=== PATIENT | male | born 1935 | race Caucasian/White ===

== ENCOUNTER 2017-04-23 18:56 | Emergency (ER) | payer OTHER, MEDICARE ==
[2017-04-23 19:00] VITALS: RESP 16; TEMP 98.6
--- NOTE | 2017-04-23 19:25 | EDPHY ---
HPI/HX/ROS/PE/MDM Narrative: CHIEF COMPLAINT: Neck pain HPI: This patient is an 82 year old male who presents to the Emergency Department complaining of worsening bilateral neck and shoulder pain over the past 2-3 days. 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 He describes his pain as achy and localized to the lateral muscle groups of his neck and shoulders. His pain was not alleviated with use of Valium today at 1100 or use of ice or heat. He denies midline cervical pain. No paresthesias or weakness. Medical history includes prostate cancer. REVIEW OF SYSTEMS: Aside from elements discussed in the HPI, a comprehensive 10-point review of systems was reviewed and is negative apart from chronic nocturnal leg cramps. PMH: Prostate cancer. SOCIAL HISTORY: Family at bedside. PHYSICAL EXAM: General:Patient is alert, in no acute distress. ENT:Eyes are normal to inspection. ENT inspection normal. Neck: Limited range of motion secondary to pain. No midline tenderness. Tenderness bilaterally to neck muscle groups. Respiratory:No respiratory distress. Breath sounds normal bilaterally. Cardiovascular: Regular rate and rhythm. Strong peripheral pulses. Normal cap refill. Abdomen:The abdomen is nontender to palpation. There are no peritoneal signs. There are normal bowel sounds. Back: Normal to inspection. No tenderness to palpation. Skin: Normal color. No rash. Warm and dry. Extremities: Normal appearance. Full range of motion. Neuro: Oriented x3. Normal motor function. Normal sensory function. ED Course: 82-year-old male presents with complaint of bilateral neck muscle pain with limited range of motion. He does not have any associated complaints; denies paresthesias, weakness, chest pain. There is no midline tenderness on exam. No neurological deficits. Will proceed with labs to check kidney function and electrolytes and plan for x-ray of the cervical spine. 10mg PO Flexeril administered. X-ray results interpreted by Dr. Pérez, radiology, are suggestive of degeneration and muscle spasm but no additional acute findings. Labs obtained. Creatinine and BUN levels are suggestive of renal insufficiency but are at baseline. 2028: On reevaluation, the patient reports that he is feeling better following administration of Flexeril but his ROM remains severely limited. I discussed with him my recommendation that we proceed with MRI of the cervical spine at this time. He is agreeable to this. 2243: MRI results reported to me by Dr. Pérez and indicate spinal stenosis. I discussed this finding with the patient as well as my recommendation that he follow-up with neurosurgery for further evaluation. He will be given Flexeril to use PRN for muscle spasms and a Arkoma pre-pack to use PRN for pain. He understands customary return precautions and will be discharged home in good condition. MDM: This patient presents with severe pain and severely limited ROM of his neck without evidence of trauma. Given age and comorbidities, particularly prostate CA, we performed an extensive workup to exclude emergent pathology. I see no signs of cervical fracture, acute spinal cord emergency, central cord syndrome, meningitis or trauma. - Data Points Imaging Results: Imaging Impressions Cervical Spine X-Ray 04/23/17 19:33 Impression: Progressive degenerative change since 2012. Alignment suggests possible muscle spasm. Imaging: Discussed imaging studies w/ director call Radiologist (Spinal stenosis) Laboratory Results: Laboratory Results 04/23/17 19:45 04/23/17 19:45 04/23/17 04/23/17 19:45 19:45 WBC 12.53 10^3/uL H 10^3/uL (3.80-9.50) RBC 4.02 10^6/uL L 10^6/uL (4.40-6.38) Hgb 13.3 g/dL L g/dL (13.7-17.5) Hct 40.4 % % (40.0-51.0) MCV 100.5 fL H fL (81.5-99.8) MCH 33.1 pg pg (27.9-34.1) MCHC 32.9 g/dL g/dL (32.4-36.7) RDW 13.7 % % (11.5-15.2) Plt Count 278 10^3/uL 10^3/uL (150-400) MPV 10.7 fL fL (8.7-11.7) Neut % (Auto) 71.5 % % (39.3-74.2) Lymph % (Auto) 12.5 % L % (15.0-45.0) [place] % (Auto) 13.5 % H % (4.5-13.0) Eos % (Auto) 1.5 % % (0.6-7.6) Baso % (Auto) 0.6 % % (0.3-1.7) Nucleat RBC Rel Count 0.0 % % (0.0-0.2) Absolute Neuts (auto) 8.97 10^3/uL H 10^3/uL (1.70-6.50) Absolute Lymphs (auto) 1.56 10^3/uL 10^3/uL (1.00-3.00) Absolute Monos (auto) 1.69 10^3/uL H 10^3/uL (0.30-0.80) Absolute Eos (auto) 0.19 10^3/uL 10^3/uL (0.03-0.40) Absolute Basos (auto) 0.07 10^3/uL 10^3/uL (0.02-0.10) Absolute Nucleated RBC 0.00 10^3/uL 10^3/uL (0-0.01) Immature Gran % 0.4 % % (0.0-1.1) Immature Gran # 0.05 10^3/uL 10^3/uL (0.00-0.10) Sodium 141 mEq/L mEq/L (134-144) Potassium 5.3 mEq/L H mEq/L (3.5-5.2) Chloride 108 mEq/L mEq/L (97-110) Carbon Dioxide 19 mEq/l L mEq/l (22-31) Anion Gap 14 mEq/L mEq/L (8-16) BUN 41 mg/dL H mg/dL (7-23) Creatinine 2.3 mg/dL H mg/dL (0.7-1.3) Estimated GFR 27 Glucose 108 mg/dL H mg/dL (70-100) Calcium 9.5 mg/dL mg/dL (8.5-10.4) Medications Given: Discontinued Medications Hydrocodone Bitart/Acetaminophen ([place] 5/325) 1 tab PO EDNOW ONE Stop: 04/23/17 22:37 Last Admin: 04/23/17 22:39 Dose: 1 tab Cyclobenzaprine HCl (Flexeril) 10 mg PO EDNOW ONE Stop: 04/23/17 19:34 Last Admin: 04/23/17 19:44 Dose: 10 mg General Time Seen by Provider: 04/23/17 19:09 Initial Vital Signs: Initial Vital Signs Temperature (C) 37 C 04/23/17 18:58 Heart Rate 82 04/23/17 18:58 Respiratory Rate 16 04/23/17 18:58 Blood Pressure 174/72 H 04/23/17 18:58 O2 Sat (%) 91 L 04/23/17 18:58 O2 Delivery Mode Room Air Allergies/Adverse Reactions: No Known Allergies Allergy (Unverified 08/29/13 05:31) Home Medications: Medication Instructions Recorded ALLOPURINOL [Allopurinol 100 mg] 100 mg PO DAILY 05/30/11 Rabeprazole Sodium [Aciphex] 20 mg PO DAILY 05/30/11 Htn Meds 11/29/11 Metoprolol Tartrate 08/29/13 Omeprazole 08/29/13 Prednisone 08/29/13 Sulfazine 08/29/13 predniSONE 20 mg PO .DAILY #1 tab 08/29/13 Cyclobenzaprine [Flexeril 10 MG 10 mg PO TID PRN #15 tab 04/23/17 (*)] Hydrocodone/APAP 5/325 [[place] 1 - 2 tab PO Q4H PRN #20 tab 04/23/17 5/325 (RX)] Departure - Departure Disposition: Home, Routine, Self-Care Clinical Impression: Neck muscle spasm, Spinal stenosis Condition: Good Instructions: Cervical Spinal Stenosis (ED), Muscle Spasm (ED) Additional Instructions: 1. Take Flexeril as prescribed, as needed for muscle spasm. 2. Take one tab Ark[place] every 4-6 hours as needed for severe pain. 3. Return to the Emergency Department if you experience tingling or numbness to your hands or arms, severe headache, confusion, difficulty walking or speaking, or for other serious concerns. 4. Follow-up with a neurosurgeon for further evaluation of your cervical spinal stenosis. We have referred you to our on-call provider, Dr. Roberto Anderson. Referrals: Roberto Anderson MD [Medical Doctor] - As per Instructions Prescriptions: Cyclobenzaprine [Flexeril 10 MG (*)] 10 mg PO TID PRN #15 tab PRN Reason: Spasms Hydrocodone/APAP 5/325 [[place] 5/325 (RX)] 1 - 2 tab PO Q4H PRN #20 tab PRN Reason: Pain, Moderate Report Scribed for: René Guajardo Report Scribed by: Radha Villa Date of Report: 04/23/17 Time of Report: 19:25 Physician Review and Approval Statement: Portions of this note were transcribed by an ED scribe. I personally performed the history, physical exam, and medical decision making; and confirm the accuracy of the information in the transcribed note.
[2017-04-23] MEDS ORDERED: CYCLOBENZAPRINE 10 MG TAB PO ONE (19:33)
[2017-04-23 19:51] LABS: % IMMATURE GRANULYOCYTES 0.4 % (0.0-1.1); ABSOLUTE IMMATURE GRANULOCYTES 0.05 10^3/uL (0.00-0.10); ADD DIFF? NO; ADD MORPH? NO; ADD SCAN? NO; ATYPICAL LYMPHOCYTE FLAG 0 (0-99); FRAGMENT RBC FLAG 0 (0-99); HEMATOCRIT 40.4 % (40.0-51.0); HEMOGLOBIN 13.3 g/dL (13.7-17.5); LEFT SHIFT FLG 0 (0-99); LIPEMIA HEMOLYSIS FLAG 80 (0-99); MEAN CELL HEMOGLOBIN 33.1 pg (27.9-34.1); MEAN CELL HEMOGLOBIN CONCENTR. 32.9 g/dL (32.4-36.7); MEAN CELL VOLUME 100.5 fL (81.5-99.8); MEAN PLATELET VOLUME 10.7 fL (8.7-11.7); PLATELET CLUMPS FLAG 20 (0-99); PLATELET COUNT 278 10^3/uL (150-400); RED BLOOD CELL COUNT 4.02 10^6/uL (4.40-6.38); RED CELL DISTRIBUTION WIDTH 13.7 % (11.5-15.2)
[2017-04-23 20:07] LABS: ANION GAP 14 mEq/L (8-16); CALCIUM 9.5 mg/dL (8.5-10.4); CARBON DIOXIDE 19 mEq/l (22-31); CHLORIDE 108 mEq/L (97-110); CREATININE 2.3 mg/dL (0.7-1.3); GLOMERULAR FILTRATION RATE 27; GLUCOSE 108 mg/dL (70-100); POTASSIUM 5.3 mEq/L (3.5-5.2); SODIUM 141 mEq/L (134-144)
[2017-04-23] MEDS ORDERED: HYDROCODONE/APAP 5/325 TAB PO ONE (22:36)
[2017-04-23 22:44] VITALS: BP 167/99; PULSE 81; O2SAT 92
== END 2017-04-23 23:13 | disposition home or self-care (01) ==
DX: M62.838 Other muscle spasm (principal); M48.02 Spinal stenosis, cervical region; Z85.46 Personal history of malignant neoplasm of prostate

== ENCOUNTER 2017-06-03 00:46 | Inpatient (IN) | payer OTHER, MEDICARE ==
[2017-06-03] MEDS ORDERED: NS 1,000 ML IV ONE (00:51)
--- NOTE | 2017-06-03 00:54 | EDPHY ---
H & P Time Seen by Provider: 06/03/17 00:46 HPI/ROS: CHIEF COMPLAINT: Chest pain HISTORY OF PRESENT ILLNESS: The patient is an 82-year-old man with history of hypertension who comes to the emergency department complaining of tightness in his anterior chest for the last 8 hours. It has been constant. He denies shortness of breath. He denies lightheadedness or dizziness. He denies radiation. He he had the symptoms once 15 years ago and had a negative cardiac workup. He has not had them since. No diaphoresis. No fevers. No cough. No recent illness. No abdominal pain. No vomiting or nausea. No trauma. He received aspirin and nitroglycerin by EMS and his pain has gone from a 4 to a 2. REVIEW OF SYSTEMS: Constitutional: denies: chills, fever, recent illness, recent injury EENTM: denies: blurred vision, double vision, nose congestion Respiratory: denies: cough, shortness of breath Cardiac: See HPI denies: irregular heart rate, lightheadedness, palpitations Gastrointestinal/Abdominal: denies: abdominal pain, diarrhea, nausea, vomiting, blood streaked stools Genitourinary: denies: dysuria, frequency, hematuria, pain Musculoskeletal: denies: joint pain, muscle pain Skin: denies: lesions, rash, jaundice, bruising Neurological: denies: headache, numbness, paresthesia, tingling, dizziness, weakness Hematologic/Lymphatic: denies: blood clots, easy bleeding, easy bruising Immunologic/allergic: denies: HIV/AIDS, transplant EXAM: GENERAL: Well-appearing, well-nourished and in no acute distress. HEAD: Atraumatic, normocephalic. EYES: Pupils equal round and reactive to light, extraocular movements intact, sclera anicteric, conjunctiva are normal. ENT: TMs normal, nares patent, oropharynx clear without exudates. Moist mucous membranes. NECK: Normal range of motion, supple without lymphadenopathy or JVD. LUNGS: Breath sounds clear to auscultation bilaterally and equal. No wheezes rales or rhonchi. HEART: Regular rate and rhythm without murmurs, rubs or gallops. ABDOMEN: Soft, nontender, normoactive bowel sounds. No guarding, no rebound. No masses appreciated. BACK: No CVA tenderness, no spinal tenderness, step-offs or deformities EXTREMITIES: Normal range of motion, no pitting or edema. No clubbing or cyanosis. NEUROLOGICAL: Cranial nerves II through XII grossly intact. Normal speech, normal gait. 5/5 strength, normal movement in all extremities, normal sensation PSYCH: Normal mood, normal affect. SKIN: Warm, dry, normal turgor, no visible rashes or lesions. Source: Patient Exam Limitations: No limitations - Medical/Surgical History Hx Asthma: No Hx Chronic Respiratory Disease: No Hx Diabetes: No Hx Cardiac Disease: No Hx Renal Disease: No Hx Cirrhosis: No Hx Alcoholism: No Hx HIV/AIDS: No Hx Splenectomy or Spleen Trauma: No Other PMH: Hypertension, gout, prostate CA & Bladder tumor - Family History Significant Family History: No pertinent family hx - Social History Smoking Status: Never smoked Alcohol Use: Sober Drug Use: None Constitutional: Initial Vital Signs Temperature (C) 36.4 C 06/03/17 00:58 Heart Rate 87 06/03/17 00:58 Respiratory Rate 20 06/03/17 00:58 Blood Pressure 180/110 H 06/03/17 00:58 O2 Sat (%) 93 06/03/17 00:58 O2 Delivery Mode Room Air O2 (L/minute) 2 Allergies/Adverse Reactions: No Known Allergies Allergy (Unverified 08/29/13 05:31) Home Medications: Medication Instructions Recorded ALLOPURINOL [Allopurinol 100 mg] 100 mg PO DAILY 05/30/11 Rabeprazole Sodium [Aciphex] 20 mg PO DAILY 05/30/11 Htn Meds 11/29/11 Metoprolol Tartrate 08/29/13 Omeprazole 08/29/13 Prednisone 08/29/13 Sulfazine 08/29/13 predniSONE 20 mg PO .DAILY #1 tab 08/29/13 Cyclobenzaprine [Flexeril 10 MG 10 mg PO TID PRN #15 tab 04/23/17 (*)] Hydrocodone/APAP 5/325 [[place] 1 - 2 tab PO Q4H PRN #20 tab 04/23/17 5/325 (RX)] Medical Decision Making - Diagnostics EKG Interpretation: An EKG obtained and was read and documented in trace view. Please see trace view for full reading and report. Sinus rhythm no acute ischemic changes, similar to previous A repeat EKG obtained and was read and documented in trace view. Please see trace view for full reading and report. Sinus rhythm, no acute ischemic changes , supraventricular contractions ED Course/Re-evaluation: 1:30 a.m. I discussed the case with Dr. Susan Altamirano who will admit to medical service. We did discuss the D-dimer but feels that this is more cardiac in origin. It is only minimally elevated considering an Aygestin scale. Will also notify Cardiology. Patient is currently having minimal 1/10 pain. I will give him another nitro. . 1:37 a.m. I discussed the case with Martha who will have Cardiology consult and catheterize in the morning. Differential Diagnosis: Partial list of the Differential diagnosis considered include but were not limited to; myocardial infarction, acute coronary disease, and although unlikely based on the history and physical exam, I also considered PE, dissection, pneumonia. Critical Care Time: Critical care time spent by me, Dr. Peñaloza exclusive with this patient was 35 minutes, exclusive of the PA time exclusive of procedures. The organ system that was at risk was cardiovascular and I gave medications, consultations and admission to prevent worsening of the patient's condition - Data Points Laboratory Results: Laboratory Results 06/03/17 00:58 06/03/17 00:58 06/03/17 06/03/17 06/03/17 00:58 00:58 00:58 WBC 11.24 10^3/uL H 10^3/uL (3.80-9.50) RBC 3.78 10^6/uL L 10^6/uL (4.40-6.38) Hgb 12.5 g/dL L g/dL (13.7-17.5) Hct 37.9 % L % (40.0-51.0) MCV 100.3 fL H fL (81.5-99.8) MCH 33.1 pg pg (27.9-34.1) MCHC 33.0 g/dL g/dL (32.4-36.7) RDW 14.2 % % (11.5-15.2) Plt Count 273 10^3/uL 10^3/uL (150-400) MPV 11.3 fL fL (8.7-11.7) Neut % (Auto) 60.0 % % (39.3-74.2) Lymph % (Auto) 23.4 % % (15.0-45.0) [place] % (Auto) 10.9 % % (4.5-13.0) Eos % (Auto) 4.7 % % (0.6-7.6) Baso % (Auto) 0.6 % % (0.3-1.7) Nucleat RBC Rel Count 0.0 % % (0.0-0.2) Absolute Neuts (auto) 6.74 10^3/uL H 10^3/uL (1.70-6.50) Absolute Lymphs (auto) 2.63 10^3/uL 10^3/uL (1.00-3.00) Absolute Monos (auto) 1.22 10^3/uL H 10^3/uL (0.30-0.80) Absolute Eos (auto) 0.53 10^3/uL H 10^3/uL (0.03-0.40) Absolute Basos (auto) 0.07 10^3/uL 10^3/uL (0.02-0.10) Absolute Nucleated RBC 0.00 10^3/uL 10^3/uL (0-0.01) Immature Gran % 0.4 % % (0.0-1.1) Immature Gran # 0.05 10^3/uL 10^3/uL (0.00-0.10) PT 14.4 SEC SEC (12.0-15.0) INR 1.13 (0.83-1.16) APTT 30.9 SEC SEC (23.0-38.0) D-Dimer 0.89 ug/mLFEU H ug/mLFEU (0.00-0.50) Sodium 146 mEq/L H mEq/L (134-144) Potassium 5.1 mEq/L mEq/L (3.5-5.2) Chloride 115 mEq/L H mEq/L (97-110) Carbon Dioxide 16 mEq/l L mEq/l (22-31) Anion Gap 15 mEq/L mEq/L (8-16) BUN 48 mg/dL H mg/dL (7-23) Creatinine 2.5 mg/dL H mg/dL (0.7-1.3) Estimated GFR 25 Glucose 120 mg/dL H mg/dL (70-100) Calcium 9.9 mg/dL mg/dL (8.5-10.4) Total Bilirubin 0.3 mg/dL mg/dL (0.1-1.4) Conjugated Bilirubin 0.3 mg/dL mg/dL (0.0-0.5) Unconjugated Bilirubin 0.0 mg/dL mg/dL (0.0-1.1) AST 33 IU/L IU/L (17-59) ALT 25 IU/L IU/L (21-72) Alkaline Phosphatase 62 IU/L IU/L (38-126) Troponin I 2.510 ng/mL H ng/mL (0-0.034) Total Protein 7.6 g/dL g/dL (6.3-8.2) Albumin 4.2 g/dL g/dL (3.5-5.0) Lipase 204.0 IU/L IU/L (23-300) Medications Given: Discontinued Medications Heparin Sodium (Porcine) (Heparin Injection) 0 unit IVP ONCE ONE PRN Reason: Protocol Stop: 06/03/17 05:03 Last Admin: 06/03/17 05:50 Dose: 4,200 unit Sodium Chloride (Ns) 1,000 mls @ 0 mls/hr IV ONCE ONE; Wide Open PRN Reason: Protocol Stop: 06/03/17 00:52 Last Admin: 06/03/17 01:09 Dose: 1,000 mls Morphine Sulfate (Morphine) 2 mg IVP EDNOW ONE Stop: 06/03/17 02:47 Last Admin: 06/03/17 02:50 Dose: 2 mg Nitroglycerin (Nitrostat) 0.4 mg SL ONCE ONE Stop: 06/03/17 01:39 Last Admin: 06/03/17 01:38 Dose: 0.4 mg Departure - Departure Disposition: [facility] Inpatient Acute Clinical Impression: Chest pain Qualifiers: Chest pain type: unspecified Qualified Code(s): R07.9 - Chest pain, unspecified Condition: Fair
--- NOTE | 2017-06-03 00:58 | CPEKG ---
Heart Rate: 63 RR Interval: 952 P-R Interval: 184 QRSD Interval: 90 QT Interval: 400 QTC Interval: 410 P [place]: 56 QRS [place]: -69 T Wave [place]: 69 EKG Severity - ABNORMAL ECG - EKG Impression: SINUS RHYTHM EKG Impression: LEFT ANTERIOR FASCICULAR BLOCK EKG Impression: Similar to previous Electronically Signed By: Piotr Peñaloza 03-Jun-2017 00:59:00
[2017-06-03 01:05] LABS: % IMMATURE GRANULYOCYTES 0.4 % (0.0-1.1); ABSOLUTE IMMATURE GRANULOCYTES 0.05 10^3/uL (0.00-0.10); ADD DIFF? NO; ADD MORPH? NO; ADD SCAN? NO; ATYPICAL LYMPHOCYTE FLAG 0 (0-99); FRAGMENT RBC FLAG 0 (0-99); HEMATOCRIT 37.9 % (40.0-51.0); HEMOGLOBIN 12.5 g/dL (13.7-17.5); LEFT SHIFT FLG 10 (0-99); LIPEMIA HEMOLYSIS FLAG 80 (0-99); MEAN CELL HEMOGLOBIN 33.1 pg (27.9-34.1); MEAN CELL VOLUME 100.3 fL (81.5-99.8); MEAN PLATELET VOLUME 11.3 fL (8.7-11.7); PLATELET CLUMPS FLAG 0 (0-99); PLATELET COUNT 273 10^3/uL (150-400); RED BLOOD CELL COUNT 3.78 10^6/uL (4.40-6.38); RED CELL DISTRIBUTION WIDTH 14.2 % (11.5-15.2)
[2017-06-03 01:15] LABS: ALANINE AMINOTRANSFERASE 25 IU/L (21-72); ALBUMIN 4.2 g/dL (3.5-5.0); ALKALINE PHOSPHATASE 62 IU/L (38-126); ANION GAP 15 mEq/L (8-16); ASPARTATE AMINOTRANSFERASE 33 IU/L (17-59); BILIRUBIN,TOTAL 0.3 mg/dL (0.1-1.4); BILIRUBIN-CONJUGATED 0.3 mg/dL (0.0-0.5); CALCIUM 9.9 mg/dL (8.5-10.4); CARBON DIOXIDE 16 mEq/l (22-31); CHLORIDE 115 mEq/L (97-110); CREATININE 2.5 mg/dL (0.7-1.3); GLOMERULAR FILTRATION RATE 25; GLUCOSE 120 mg/dL (70-100); POTASSIUM 5.1 mEq/L (3.5-5.2); SODIUM 146 mEq/L (134-144); TOTAL PROTEIN 7.6 g/dL (6.3-8.2)
[2017-06-03 01:21] LABS: INR 1.13 (0.83-1.16); PROTIME(PATIENT) 14.4 SEC (12.0-15.0)
[2017-06-03 01:22] LABS: APTT 30.9 SEC (23.0-38.0)
--- NOTE | 2017-06-03 01:35 | CPEKG ---
Heart Rate: 64 RR Interval: 938 P-R Interval: 192 QRSD Interval: 90 QT Interval: 408 QTC Interval: 421 P [place]: 48 QRS [place]: -63 T Wave [place]: 65 EKG Severity - ABNORMAL ECG - EKG Impression: SINUS RHYTHM EKG Impression: SUPRAVENTRICULAR BIGEMINY EKG Impression: LEFT ANTERIOR FASCICULAR BLOCK Electronically Signed By: Piotr Peñaloza 03-Jun-2017 01:39:21
[2017-06-03] MEDS ORDERED: NITROGLYCERIN 0.4 MG BTL SL ONE ×2 (01:36→01:38)
[2017-06-03] MEDS ORDERED: ACETAMINOPHEN 325 MG TAB PO PRN (04:27)
[2017-06-03] MEDS ORDERED: ONDANSETRON 4 MG/2 ML VIAL IVP PRN (04:27)
[2017-06-03] MEDS ORDERED: NS 1,000 ML IV SCH ×2 (04:30→11:30)
[2017-06-03] MEDS ORDERED: HEPARIN 10,000 UNIT/10 ML MDV IVP PRN (05:02)
[2017-06-03] MEDS ORDERED: HEPARIN 10,000 UNIT/10 ML MDV IVP ONE (05:02)
--- NOTE | 2017-06-03 05:10 | CPEKG ---
Heart Rate: 66 RR Interval: 909 P-R Interval: 192 QRSD Interval: 90 QT Interval: 384 QTC Interval: 403 P [place]: 23 QRS [place]: -65 T Wave [place]: 77 EKG Severity - ABNORMAL ECG - EKG Impression: SINUS RHYTHM EKG Impression: LEFT ANTERIOR FASCICULAR BLOCK EKG Impression: LOW VOLTAGE IN FRONTAL LEADS Electronically Signed By: Miguel Angel Flores 08-Jun-2017 12:52:08
[2017-06-03] MEDS ORDERED: HEPARIN/DEXTROSE 500 ML IV SCH (05:15)
[2017-06-03 05:48] LABS: % IMMATURE GRANULYOCYTES 0.4 % (0.0-1.1); ABSOLUTE IMMATURE GRANULOCYTES 0.04 10^3/uL (0.00-0.10); ADD DIFF? NO; ADD MORPH? NO; ADD SCAN? NO; ATYPICAL LYMPHOCYTE FLAG 0 (0-99); FRAGMENT RBC FLAG 0 (0-99); HEMATOCRIT 35.1 % (40.0-51.0); HEMOGLOBIN 11.7 g/dL (13.7-17.5); LEFT SHIFT FLG 40 (0-99); LIPEMIA HEMOLYSIS FLAG 80 (0-99); MEAN CELL HEMOGLOBIN 33.6 pg (27.9-34.1); MEAN CELL HEMOGLOBIN CONCENTR. 33.3 g/dL (32.4-36.7); MEAN CELL VOLUME 100.9 fL (81.5-99.8); MEAN PLATELET VOLUME 10.8 fL (8.7-11.7); PLATELET CLUMPS FLAG 0 (0-99); PLATELET COUNT 232 10^3/uL (150-400); RED BLOOD CELL COUNT 3.48 10^6/uL (4.40-6.38); RED CELL DISTRIBUTION WIDTH 14.5 % (11.5-15.2)
[2017-06-03 05:53] LABS: INR 1.17 (0.83-1.16); PROTIME(PATIENT) 14.9 SEC (12.0-15.0)
[2017-06-03 05:54] LABS: APTT 30.3 SEC (23.0-38.0)
[2017-06-03 06:05] LABS: ANION GAP 12 mEq/L (8-16); CALCIUM 9.2 mg/dL (8.5-10.4); CARBON DIOXIDE 17 mEq/l (22-31); CHLORIDE 116 mEq/L (97-110); CHOLESTEROL 130 mg/dL (140-220); CHOLESTEROL/HDL RATIO 3.61 RATIO (1.00-4.97); CREATININE 2.3 mg/dL (0.7-1.3); GLOMERULAR FILTRATION RATE 27; GLUCOSE 95 mg/dL (70-100); HIGH DENSITY LIPOPROTEIN 36 mg/dL (40-65); LDL/HDL RATIO 2.36 RATIO (1.00-3.64); LOW DENSITY LIPOPROTEIN 85 mg/dL (80-100); NON-HIGH DENSITY LIPOPROTEIN 94 mg/dL (90-129); POTASSIUM 5.3 mEq/L (3.5-5.2); SODIUM 145 mEq/L (134-144); TRIGLYCERIDE 45 mg/dL (40-150); VERY LOW DENSITY LIPOPROTEINS 9 mg/dL (8-25)
--- NOTE | 2017-06-03 07:42 | GHP ---
[f rep st] HISTORY AND PHYSICAL DATE OF ADMISSION: 06/03/2017 CHIEF COMPLAINT: Chest pain. HISTORY OF PRESENT ILLNESS: The patient is an 82-year-old male who developed chest pain at 4 o'cloc k this afternoon. He describes it as a substernal chest pressure, never more severe than 1 to 2/10. This has been continuous; however, since it started. He has never had chest pain like this before . He went to bed at 10 o'clock at night. The chest pain persisted. He decided better to be safe t [place] sorry and come to the emergency room. In the emergency room he has received nitroglycerin and m orphine and he now describes his pain as a 0.5/10. It does not radiate. It is nonpleuritic. PAST MEDICAL HISTORY: 1. Hypertension. 2. Gout. 3. Prostate and bladder cancer. 4. Small right kidney with chronic kidney disease. He follows with Dr. Troncoso. 5. Asthma. MEDICATIONS: Please see computer record for full detailed list. ALLERGIES: No known drug allergies. SOCIAL HISTORY: No smoking. Drinks 1 glass of wine per day. [place] his , [address] [facility]. REVIEW OF SYSTEMS: Complete review of systems obtained. Review of systems negative regarding const itutional, HEENT, GI, pulmonary, cardiovascular, , hematology, skin, muscular endocrine, psych. P ertinent positives and negatives as in HPI. FAMILY HISTORY: Reviewed noncontributory to presenting complaint. PHYSICAL EXAMINATION: GENERAL: Well-developed, well-nourished male, in no acute distress. VITAL S IGNS: Temperature is 36.4, pulse 59, blood pressure 136/63, saturating 96% on 2 L. EYES: Normal c onjunctivae. Pupils react to light. ENT: Normal ears, nose. Hearing intact. Normal lips and jessie th. Oropharynx moist. NECK: Trachea midline. No thyromegaly. CHEST: Normal effort. LUNGS: Reed ar to auscultation bilaterally. CARDIOVASCULAR: Regular rhythm. No murmur. No lower extremity moshe ma. ABDOMEN: Soft, nontender. No hepatosplenomegaly. SKIN: Warm, dry, intact. No rash. MUSCUL OSKELETAL: No cyanosis, no cyanosis or clubbing. Strength 5/5 upper and lower extremities. NEURO: Cranial nerves intact. Normal sensation to light touch. PSYCH: Alert oriented x3. Normal affect . Normal judgment. Normal memory. LABORATORY DATA: White count 11.24, hematocrit 37.9, platelets 273. Sodium 146, potassium 5.1, chl oride 115, bicarb 16. BUN 48, creatinine 2.5. Glucose 120. D-dimer 0.89. Troponins 2.5. EKG reviewed by me, my personal interpretation is normal sinus rhythm, no ST-T wave changes. Chest x-ray is negative. ASSESSMENT/PLAN: 1. Non ST-elevation myocardial infarction. His EKG is without change and he is nearly chest-pain f ree. Cardiology has been consulted. They would like to cath him in the morning. We will treat med ically overnight with morphine and nitroglycerin paste. Aspirin and IV heparin. We will check an e chocardiogram. 2. Chronic kidney disease. Of course, this will be concerning with the use of IV contrast in cardi ac catheterization. His creatinine is at baseline. We will hydrate with IV fluid normal saline and then Cardiology will need to discuss the risks and benefits of proceeding with cardiac catheterizat ion given this creatinine elevation. 3. Hypertension. Home medications need to be clarified. CODE STATUS: Full. ADMISSION STATUS: 1. Will admit to inpatient. Anticipate greater than 2 midnights required for acute PR. 2. DVT prophylaxis. We are initiating IV heparin. /[id number]/MODL
[2017-06-03] MEDS ORDERED: diphenhydrAMINE 25 MG CAP PO ONE (09:19)
[2017-06-03] MEDS ORDERED: TEMAZEPAM 15 MG CAP PO PRN (09:19)
[2017-06-03] MEDS ORDERED: DIAZEPAM 5 MG TAB PO ONE (09:19)
[2017-06-03] MEDS ORDERED: LIDOCAINE 1% 300 MG/30 ML SDV ONE (09:24)
[2017-06-03] MEDS ORDERED: fentaNYL 100 MCG/2 ML INJ ONE (09:24)
[2017-06-03] MEDS ORDERED: IOPAMIDOL (ISOVUE-370) 150 ML BTL IV ONE ×2 (09:24→10:18)
[2017-06-03] MEDS ORDERED: MIDAZOLAM 2 MG/2 ML VIAL ONE (09:24)
--- NOTE | 2017-06-03 09:38 | PDCARCONS ---
Cardiology Consult Reason for Consult: Chest pain Chief Complaint: Chest pain Requesting Physician: Evelia History of Present Illness: 82-year-old male no prior cardiovascular history presents with 1 day of acute onset substernal chest pressure/chest tightness. The pain began around 4:00 p.m. yesterday afternoon. It persisted to the came to the emergency department. At that point was treated with morphine nitroglycerin and oxygen with improvement in discomfort. Overnight he has become pain free. This morning he is having no chest discomfort. It did not radiate to the arm or jaw. It was not associated with shortness of breath, nausea, vomiting, diaphoresis. There is no exertional component ,there was no pleuritic component. Cardiac risk factors include hypertension, male sex, age. Patient denies diabetes, hyperlipidemia, family history. He is otherwise in good health. He is active working hard on the property. He has had no recent change in exercise performance. Cardiac review of systems is negative for shortness of breath, PND, orthopnea, palpitations, syncope, near syncope, edema. History Information - Allergies/Home Medication List Allergies/Adverse Reactions: No Known Allergies Allergy (Unverified 08/29/13 05:31) Home Medications: ALLOPURINOL [Allopurinol 100 mg] 100 mg PO DAILY 05/30/11 [Last Taken Unknown] Rabeprazole Sodium [Aciphex] 20 mg PO DAILY 05/30/11 [Last Taken Unknown] Htn Meds 11/29/11 [Last Taken Unknown] Metoprolol Tartrate 08/29/13 [Last Taken Unknown] Omeprazole 08/29/13 [Last Taken Unknown] Prednisone 08/29/13 [Last Taken Unknown] Sulfazine 08/29/13 [Last Taken Unknown] I have personally reviewed and updated: family history, medical history, social history, surgical history - Past Medical History ESRD, hypertension - Family History Positive for: non-pertinent - Social History Smoking Status: Never smoked Alcohol Use: Occasionally Drug Use: None Cardiac History - Cardiac History Cardiac Risk Factors: hypertension (>140/90), age > 65, male Timing/Duration: Days Severity: severe Severity Scale: 10 Location: substernal Activities at Onset: rest WILLIAM Risk Evaluation age greater or equal to 65: yes greater or equal to 3 CAD risk factors: yes known CAD(stenosis greater or eqaul to 50%): no ASA use in past 7 days: yes severe angina(greater or equal to 2 episodes in 24hrs): yes EKG ST changes greater or equal to 0.5mm: no positive cardiac marker: yes Total Score: 5 WILLIAM Score: 26.2% risk Physical Exam Temp Pulse Resp BP Pulse Ox 36.7 C 71 18 153/81 H 96 06/03/17 06:20 06/03/17 06:20 06/03/17 06:20 06/03/17 06:20 06/03/17 06:20 O2 (L/minute) 2 Constitutional: no apparent distress, appears nourished, not in pain Eyes: PERRL, anicteric sclera Ears, Nose, Mouth, Throat: moist mucous membranes, hearing normal Cardiovascular: regular rate and rhythym, no murmur, rub, or gallop, No JVD Peripheral Pulses: 1+: carotid (R), carotid (L), dorsalis-pedis (R), dorsalis- pedis (L), 2+: femoral (R), femoral (L) Respiratory: no respiratory distress, no rales or rhonchi, clear to auscultation , No expiratory wheeze Gastrointestinal: normoactive bowel sounds, soft, non-tender abdomen, no palpable masses Genitourinary: no bladder fullness, no bladder tenderness Skin: warm, normal color, no rashes or abrasions Musculoskeletal: full muscle strength, no muscle tenderness, normal joint ROM, no joint effusions Neurologic: sensation intact bilaterally, CN II-XII Intact, No weakness, No numbness, No facial droop Psychiatric: interacting appropriately, not anxious Lymph, Heme, Immunologic: no cervical LAD, no supraclavicular LAD, No lymphadenopathy Lab and Imaging 06/03/17 05:20 06/03/17 05:20 WBC 10.99 10^3/uL (3.80-9.50) H 06/03/17 05:20 RBC 3.48 10^6/uL (4.40-6.38) L 06/03/17 05:20 Hgb 11.7 g/dL (13.7-17.5) L 06/03/17 05:20 Hct 35.1 % (40.0-51.0) L 06/03/17 05:20 MCV 100.9 fL (81.5-99.8) H 06/03/17 05:20 MCH 33.6 pg (27.9-34.1) 06/03/17 05:20 MCHC 33.3 g/dL (32.4-36.7) 06/03/17 05:20 RDW 14.5 % (11.5-15.2) 06/03/17 05:20 Plt Count 232 10^3/uL (150-400) 06/03/17 05:20 MPV 10.8 fL (8.7-11.7) 06/03/17 05:20 Neut % (Auto) 64.0 % (39.3-74.2) 06/03/17 05:20 Lymph % (Auto) 20.5 % (15.0-45.0) 06/03/17 05:20 [place] % (Auto) 10.0 % (4.5-13.0) 06/03/17 05:20 Eos % (Auto) 4.4 % (0.6-7.6) 06/03/17 05:20 Baso % (Auto) 0.7 % (0.3-1.7) 06/03/17 05:20 Nucleat RBC Rel Count 0.0 % (0.0-0.2) 06/03/17 05:20 Absolute Neuts (auto) 7.04 10^3/uL (1.70-6.50) H 06/03/17 05:20 Absolute Lymphs (auto) 2.25 10^3/uL (1.00-3.00) 06/03/17 05:20 Absolute Monos (auto) 1.10 10^3/uL (0.30-0.80) H 06/03/17 05:20 Absolute Eos (auto) 0.48 10^3/uL (0.03-0.40) H 06/03/17 05:20 Absolute Basos (auto) 0.08 10^3/uL (0.02-0.10) 06/03/17 05:20 Absolute Nucleated RBC 0.00 10^3/uL (0-0.01) 06/03/17 05:20 Immature Gran % 0.4 % (0.0-1.1) 06/03/17 05:20 Immature Gran # 0.04 10^3/uL (0.00-0.10) 06/03/17 05:20 PT 14.9 SEC (12.0-15.0) 06/03/17 05:20 INR 1.17 (0.83-1.16) H 06/03/17 05:20 APTT 30.3 SEC (23.0-38.0) 06/03/17 05:20 D-Dimer 0.89 ug/mLFEU (0.00-0.50) H 06/03/17 00:58 Sodium 145 mEq/L (134-144) H 06/03/17 05:20 Potassium 5.3 mEq/L (3.5-5.2) H 06/03/17 05:20 Chloride 116 mEq/L (97-110) H 06/03/17 05:20 Carbon Dioxide 17 mEq/l (22-31) L 06/03/17 05:20 Anion Gap 12 mEq/L (8-16) 06/03/17 05:20 BUN 43 mg/dL (7-23) H 06/03/17 05:20 Creatinine 2.3 mg/dL (0.7-1.3) H 06/03/17 05:20 Estimated GFR 27 06/03/17 05:20 Glucose 95 mg/dL (70-100) 06/03/17 05:20 Calcium 9.2 mg/dL (8.5-10.4) 06/03/17 05:20 Total Bilirubin 0.3 mg/dL (0.1-1.4) 06/03/17 00:58 Conjugated Bilirubin 0.3 mg/dL (0.0-0.5) 06/03/17 00:58 Unconjugated Bilirubin 0.0 mg/dL (0.0-1.1) 06/03/17 00:58 AST 33 IU/L (17-59) 06/03/17 00:58 ALT 25 IU/L (21-72) 06/03/17 00:58 Alkaline Phosphatase 62 IU/L (38-126) 06/03/17 00:58 Troponin I 4.780 ng/mL (0-0.034) H 06/03/17 05:20 Total Protein 7.6 g/dL (6.3-8.2) 06/03/17 00:58 Albumin 4.2 g/dL (3.5-5.0) 06/03/17 00:58 Triglycerides 45 mg/dL (40-150) 06/03/17 05:20 Cholesterol 130 mg/dL (140-220) L 06/03/17 05:20 Cholesterol Risk Factr 0.6 (0.2-1.0) 06/03/17 05:20 LDL Cholesterol, Calc 85 mg/dL (80-100) 06/03/17 05:20 LDL Risk Factor 0.8 (0.2-1.0) 06/03/17 05:20 VLDL Cholesterol 9 mg/dL (8-25) 06/03/17 05:20 Non-HDL Cholesterol 94 mg/dL (90-129) 06/03/17 05:20 HDL Cholesterol 36 mg/dL (40-65) L 06/03/17 05:20 LDL/HDL Ratio 2.36 RATIO (1.00-3.64) 06/03/17 05:20 Cholesterol/HDL Ratio 3.61 RATIO (1.00-4.97) 06/03/17 05:20 Lipase 204.0 IU/L (23-300) 06/03/17 00:58 Visualized and Interpreted Chest x-ray results: Yes Chest X-ray Interpretation: no infiltrate, normal, normal heart size Visualized and Interpreted imaging results: Yes Visualized and Interpreted EKG results: Yes EKG additional interpertation: EKG shows sinus rhythm with the left axis deviation. No acute ST-T changes are noted. No changes in EKG over course of admission. A/P Assessment: 82-year-old male with WILLIAM grade risk score of 5 suggesting 21-22% risk of acute coronary syndrome. Admission characterized by chest discomfort associated with elevation in troponin, nondiagnostic EKG with discomfort responding to IV heparin nitroglycerin and morphine. Patient's course complicated by renal disease with baseline creatinine of 2.3. Clinical symptoms and laboratory data suggests acute coronary syndrome. Recommend diagnostic angiogram with limited contrast for definitive diagnosis and to guide therapy. Risks including worsening of creatinine discussed. Will plan for aggressive IV hydration. Serial follow-up of creatinine. Pending clinical result consider broadening differential diagnosis. Plan: 1. Diagnostic coronary angiogram with contrast sparing protocol. 2. Continue aggressive medical therapy with heparin aspirin in the short term. 3. Management of blood pressure. Past Medical History - Personal History Current Tetanus Diphtheria and Acellular Pertussis (TDAP): Yes - Medical/Surgical History Hx Asthma: No Hx Chronic Respiratory Disease: No Hx Cardiac Disease: No Hx Diabetes: No Hx Renal Disease: No Hx Alcoholism: No Hx Cirrhosis: No Hx HIV/AIDS: No Hx Splenectomy or Spleen Trauma: No Other PMH: Hypertension, gout, prostate CA & Bladder tumor - Family History Significant Family History: No pertinent family hx - Social History Smoking Status: Never smoked Alcohol Use: Occasionally (1 glass of wine per night) Additional Social History: [employer] the [employer]. Review of Systems - Review of Systems Constitutional: no symptoms reported EENTM: no symptoms reported Respiratory: no symptoms reported Cardiac: chest pain. denies: edema, irregular heart rate, lightheadedness, palpitations, syncope Gastrointestinal/Abdominal: no symptoms reported Genitourinary: no symptoms Musculoskelatal: no symptoms Skin: no symptoms Neurological: no symptoms Hematologic/Lymphatic: no symptoms reported Immunologic/allergic: no symptoms reported All Other Systems: Reviewed and Negative
[2017-06-03] MEDS: NITROGLYCERIN 2% 1 GM PACKET TP SCH ×3 (09:49→18:19)
[2017-06-03] MEDS: ASPIRIN EC 325 MG TAB PO SCH (09:50)
[2017-06-03] MEDS ORDERED: HEPARIN 10,000 UNIT/10 ML MDV ONE (10:15)
[2017-06-03] MEDS ORDERED: NITROGLYCERIN 1,500 MCG/15 ML VIAL MISC ONE (10:18)
[2017-06-03] MEDS ORDERED: EPTIFIBATIDE 20 MG/10 ML VIAL IVP ONE ×3 (10:32→10:45)
[2017-06-03] MEDS ORDERED: PRASUGREL HCL 10 MG TAB ONE (11:11)
[2017-06-03] MEDS ORDERED: PRASUGREL HCL 10 MG TAB PO ONE (11:17)
[2017-06-03] MEDS ORDERED: ATROPINE SULFATE 1 MG/10 ML SYR IVP PRN (11:17)
[2017-06-03] MEDS ORDERED: NON-FORMULARY NEW DRUG (Fluticasone Nasal [Flonase Nasal Spray] 1 SPRAYS) NASAL PRN (11:29)
[2017-06-03] MEDS ORDERED: ALPRAZolam 0.25 MG TAB PO PRN (11:29)
--- NOTE | 2017-06-03 11:29 | PDDXCAT ---
Diagnostic Cath Note - . Date: 06/03/17 Business Services Director: Hero Indication: other (NSTEMI) - Procedure Access: right groin Procedure: left heart catheterization, coronary angiography, other (Measurement of LVEDP) - Materials Left Heart Cath size: 6F Left Heart Cath materials: standard multipack (JL4, JR4, pigtail) - Findings-Left Heart Catheterization LM: Unobstructed LAD: Large vessel reaching to the apex. 2 diagonal branches. 30% mid LAD stenosis LCX: Large vessel. Acute closure of the 2nd obtuse marginal branch proximal to thrombotic occlusion 99% linear dissection. RCA: 90% proximal RCA with ulceration EDP: 15 mm of mercury post procedure Complications: None Closure method: Angioseal Assessment: NSTEMI with occlusion of a large 2nd obtuse marginal branch. Critical RCA proximal stenosis. Normal filling pressures. Plan: Emergent PCI with renal protection. Intervention: Procedure: PCI and crush stenting of the 2nd obtuse marginal branch and seminole circumflex. PCI with primary stenting of the proximal RCA. Indications: NSTEMI After reviewing diagnostic angiograms it was elected to proceed with emergent PCI. Patient was brought to the laborer sawmill on heparin. ACT was evaluated additional bolus was given. Using a 6 Welsh extra support sheath, a 6 Welsh JL4 guiding catheter was used to intubate the left main coronary. Using a 0.014 luge wire attempts at crossing the OM stenosis were made but failed. A 0.014 airplane pilot supervisor 50 wire with balloon support crossed into the 2nd obtuse marginal branch reestablishing antegrade flow. This wire was withdrawn and placed in the seminole circumflex artery. A 2nd 0.014 airplane pilot supervisor 50 wire was then negotiated into the 2nd obtuse marginal branch with balloon support. A 2 mm balloon was used to reestablish antegrade flow with 3 inflations in the 2nd obtuse marginal branch. It was elected to proceed with crush stenting. A 2.5 mm balloon was placed on the circumflex artery wire and placed distally. A 3.0 x 20 mm synergy stent was placed on the 2nd obtuse marginal branch wire and positioned appropriately. Was deployed using a single inflation. Repeat angiogram showed excellent flow into the 2nd obtuse marginal branch with moderate plaque shift into the seminole circ. The 2.5 mm balloon was brought back and used to crush the proximal end of the stent with a single inflation. The balloon was withdrawn. A 3.0 by 20 mm synergy stent was placed on the seminole circumflex artery. The OM wire was withdrawn. The stent was positioned across the ostium and deployed using a single inflation. Repeat angiograms revealed WILLIAM 3 flow in both limbs without complication. Our attention was then turned to the seminole right coronary. Therapeutic ACT was confirmed. In light of thrombus burden it was elected to administer 2 boluses of Integrilin. Using a 6 Welsh JR4 guiding catheter the right coronary was selectively intubated. Using a 0.014 airplane pilot supervisor 50 wire the RCA stenosis was crossed and the wire placed in the distal vessel. A 4.0 x 12 mm synergy stent was placed across the lesion and deployed using a single inflation. Repeat angiogram showed WILLIAM grade 3 flow. Wire was withdrawn. Measurement of left ventricular end-diastolic pressure was made. Patient was loaded with Effient in the laborer sawmill. The sheath was removed using Angio-Seal. He has taken to recovery for continued care. Final diagnosis:NSTEMI with occlusion of the large OM2 and critical RCA stenosis s/p succesful two vessel PCI. Plan: Aggressive secondary prevention. Patient Problems: Problems Problem Status Onset Status post coronary artery stent placement Acute Status post insertion of drug-eluting stent into right coronary artery for coronary artery disease Acute NSTEMI (non-ST elevated myocardial infarction) Acute Chest pain Acute
[2017-06-03] MEDS ORDERED: NON-FORMULARY NEW DRUG (Omeprazole [Prilosec 20 Mg] 20 MG) PO SCH (11:30)
[2017-06-03] MEDS ORDERED: ONDANSETRON 4 MG/2 ML VIAL ONE (11:37)
--- NOTE | 2017-06-03 11:52 | CPEKG ---
Heart Rate: 63 RR Interval: 952 P-R Interval: 196 QRSD Interval: 88 QT Interval: 428 QTC Interval: 439 P Hasty: 8 QRS Hasty: -87 T Wave Hasty: 62 EKG Severity - ABNORMAL ECG - EKG Impression: SINUS RHYTHM EKG Impression: LEFT ANTERIOR FASCICULAR BLOCK EKG Impression: LOW VOLTAGE IN FRONTAL LEADS EKG Impression: Lateral ST-T wave abnormalities-- Possibly slightly more prominent compared to EKG Impression: June 03, 2017, 5:07 Electronically Signed By: Aki Canela 04-Jun-2017 07:47:41
[2017-06-03] MEDS ORDERED: FLUTICASONE NASAL 120 SPRAYS/16 GM MDI EACHNARE PRN (12:01)
--- NOTE | 2017-06-03 12:06 | ECHO ---
[id number] + + [id number] : : [place] [address] : : [phone] + + Adult Echocardiographic Report + -+ :Name: FANG DE SOUZA HStudy Date: 06/03/2017 08:24 AM : : Hospital Admission Number: [id number] : :: 1935 Gender: Male Height: 68 in : :Age: 82 yrs Race: WH Weight: 157 lb : :Reason For Study: AMI : : BSA: 1.8 meters 2: :History: No Previous : + -+ MMode/2D Measurements \T\ Calculations IVSd: 1.3 cm LVIDd: 4.5 cm FS: 23.7 % LVOT diam: 1.7 cm LVPWd: 0.92 cm LVIDs: 3.5 cm EDV(Teich): LVOT area: 93.6 ml 2.2 cm2 ESV(Teich): 49.3 ml EF(Teich): 47.4 % LVLd ap4: 8.4 cm SV(MOD-sp4): EDV(MOD-sp4): 56.0 ml 116.0 ml LVLs ap4: 7.5 cm ESV(MOD-sp4): 60.0 ml EF(MOD-sp4): 48.3 % Normal Measurement Values: + + :LVIDd (3.5-5.7cm) IVSd (0.6-1.1cm) LVPWd (0.6-1.1cm) Aortic Root (2.0-3.7cm)Left Atrium (1.5-4.0cm): :LV Vol(d) (76-115ml) LV Vol(s) (29-48ml) Ejec Fraction (50-65%)PV Sonny (0.6- 1.2m/s) TV Sonny (0.4-1.0m/s) : :MV E Sonny (0.8-1.0m/s)MV A Sonny (0.3-1.0m/s)LVOT Sonny (0.7-1.2m/s) Asc Ao Sonny ( 0.9-1.8m/s) : + + Doppler Measurements \T\ Calculations MV E max sonny: MV V2 mean: Ao mean PG: LV V1 max: 74.0 cm/sec 57.0 cm/sec 3.0 mmHg 85.9 cm/sec MV A max sonny: MV mean PG: Ao V2 mean: LV V1 max P.0 cm/sec 1.5 mmHg 79.9 cm/sec 3.0 mmHg MV E/A: 0.93 MV V2 VTI: 27.3 cm Ao V2 VTI: 28.7 cm LV V1 mean PG: MV dec time: MVA(VTI): 1.7 cm2 NIKO(I,D): 1.6 cm2 1.3 mmHg 0.15 sec LV V1 mean: 52.6 cm/sec LV V1 VTI: 20.2 cm SV(LVOT): 45.4 ml PA V2 max: PI end-d sonny: TR max sonny: 81.7 cm/sec 93.0 cm/sec 305.4 cm/sec PA max PG: TR max P.7 mmHg 37.3 mmHg Left Ventricle The left ventricle is normal in size. There is normal left ventricular wall thickness. Ejection Fraction = 45-50%. Akinetic Basal-Mid Anterolateral. Hypokinetic Anterior and Inferolateral. Right Ventricle The right ventricle is normal in size and function. Atria The left atrial size is normal. Right atrial size is normal. Mitral Valve The mitral valve is normal. There is no mitral valve stenosis. There is mild mitral regurgitation. Tricuspid Valve Normal tricuspid valve. There is no tricuspid stenosis. There is mild tricuspid regurgitation. Aortic Valve The aortic valve is normal in structure and function. There is no aortic stenosis. There is no aortic insufficiency. Pulmonic Valve The pulmonic valve is not well visualized. Mild to moderate pulmonic valvular regurgitation. Great Vessels The aortic root is normal size. Pericardium/Pleural There is a fat pad seen. Conclusion A complete two-dimensional transthoracic echocardiogram was performed (2D, M-mode, Doppler and color flow Doppler). Akinetic Basal-Mid Anterolateral. Hypokinetic Anterior and Inferolateral. Ejection Fraction = 45-50%. There is mild mitral regurgitation. There is mild tricuspid regurgitation. The aortic valve is normal in structure and function. Mild to moderate pulmonic valvular regurgitation. Final Reading Physician: Nydia Kenney signed on 06/03/2017 12:04 PM Ordering Physician: Susan Altamirano Performed By: Karen Tate
[2017-06-03 13:05] LABS: % IMMATURE GRANULYOCYTES 0.5 % (0.0-1.1); ABSOLUTE IMMATURE GRANULOCYTES 0.08 10^3/uL (0.00-0.10); ADD DIFF? NO; ADD MORPH? NO; ADD SCAN? NO; ATYPICAL LYMPHOCYTE FLAG 0 (0-99); FRAGMENT RBC FLAG 0 (0-99); HEMOGLOBIN 11.3 g/dL (13.7-17.5); LEFT SHIFT FLG 80 (0-99); LIPEMIA HEMOLYSIS FLAG 80 (0-99); MEAN CELL HEMOGLOBIN 33.2 pg (27.9-34.1); MEAN CELL HEMOGLOBIN CONCENTR. 32.3 g/dL (32.4-36.7); MEAN CELL VOLUME 102.9 fL (81.5-99.8); PLATELET CLUMPS FLAG 0 (0-99); PLATELET COUNT 255 10^3/uL (150-400); RED CELL DISTRIBUTION WIDTH 14.6 % (11.5-15.2)
--- NOTE | 2017-06-03 14:26 | HOSPPROG ---
Hospitalist Progress Note Assessment/Plan: 82 yo M with PMH of HTN, CKD, bladder/prostate cancer presenting with nstemi # nstemi: s/p cath and 2 vessel PCI, trop last at 4.7, currently chest pain free , will monitor overnight. ECG personally reviewed and no st elevations or other clear ischemic changes. # cad: as above, will dc on asa, statin, bb, effient. # ckd: baseline creatinine of 2.3 approximately, currently at baseline, will monitor closely given dye load, continue IVF for now post dye load # htn: currently mildly hypotensive on home metoprolol, was on low dose lisinopril which is being held for now, will resume if bp trends up # leukocytosis: has been elevated consistently for the last several months, largely neutrophils, associated macrocytosis. Recommend outpatient f/u . # h/o bladder/prostate cancer # IP status, will need > 48 hours stay for eval/mgmt of above Patient new to my care. Old records reviewed and summarized as above. Subjective: patient went for cath today, seen post cath and was sleepy but no other complaints, no chest pain Objective: Vital Signs Temp Pulse Resp BP Pulse Ox 36.7 C 54 L 16 98/66 L 94 06/03/17 06:20 06/03/17 12:00 06/03/17 12:10 06/03/17 12:02 06/03/17 12:10 Laboratory Results 06/03/17 12:45 06/03/17 05:20 06/02/17 06/03/17 06/04/17 05:59 05:59 05:59 Intake Total 1000 600 Balance 1000 600 PT 14.9 SEC (12.0-15.0) 06/03/17 05:20 INR 1.17 (0.83-1.16) H 06/03/17 05:20 awake alert nad anicteric op clear rrr no mrg cta b to ant exam soft +bs no cce warm dry well perfused oriented appropriate ICD10 Worksheet Patient Problems: Problems Problem Status Onset Chest pain Acute NSTEMI (non-ST elevated myocardial infarction) Acute Status post coronary artery stent placement Acute Status post insertion of drug-eluting stent into right coronary artery for coronary artery disease Acute
[2017-06-03 16:51] LABS: HEMATOCRIT 31.1 % (40.0-51.0); HEMOGLOBIN 10.1 g/dL (13.7-17.5)
[2017-06-03] MEDS: ATORVASTATIN CALCIUM 10 MG TAB PO SCH (17:24)
[2017-06-03] MEDS: METOPROLOL TARTRATE 50 MG TAB PO SCH (17:25)
[2017-06-04] MEDS: NITROGLYCERIN 2% 1 GM PACKET TP SCH ×4 (00:17→12:15)
[2017-06-04] MEDS ORDERED: CALCIUM CARBONATE 500 MG CHEWABLE TAB PO PRN (00:59)
[2017-06-04 04:46] LABS: % IMMATURE GRANULYOCYTES 0.5 % (0.0-1.1); ABSOLUTE IMMATURE GRANULOCYTES 0.08 10^3/uL (0.00-0.10); ADD DIFF? NO; ADD MORPH? NO; ADD SCAN? NO; ATYPICAL LYMPHOCYTE FLAG 0 (0-99); FRAGMENT RBC FLAG 0 (0-99); HEMATOCRIT 28.9 % (40.0-51.0); HEMOGLOBIN 9.3 g/dL (13.7-17.5); LEFT SHIFT FLG 60 (0-99); LIPEMIA HEMOLYSIS FLAG 80 (0-99); MEAN CELL HEMOGLOBIN 33.1 pg (27.9-34.1); MEAN CELL HEMOGLOBIN CONCENTR. 32.2 g/dL (32.4-36.7); MEAN CELL VOLUME 102.8 fL (81.5-99.8); MEAN PLATELET VOLUME 11.3 fL (8.7-11.7); PLATELET CLUMPS FLAG 0 (0-99); PLATELET COUNT 222 10^3/uL (150-400); RED BLOOD CELL COUNT 2.81 10^6/uL (4.40-6.38); RED CELL DISTRIBUTION WIDTH 14.6 % (11.5-15.2)
[2017-06-04 05:03] LABS: ANION GAP 8 mEq/L (8-16); ASPARTATE AMINOTRANSFERASE 87 IU/L (17-59); BILIRUBIN,TOTAL 0.6 mg/dL (0.1-1.4); CALCIUM 8.5 mg/dL (8.5-10.4); CARBON DIOXIDE 16 mEq/l (22-31); CHLORIDE 118 mEq/L (97-110); CREATININE 2.2 mg/dL (0.7-1.3); GLOMERULAR FILTRATION RATE 29; GLUCOSE 106 mg/dL (70-100); LACTATE DEHYDROGENASE 975 IU/L (313-618); MAGNESIUM 1.5 mg/dL (1.6-2.3); POTASSIUM 5.2 mEq/L (3.5-5.2); SODIUM 142 mEq/L (134-144)
[2017-06-04] MEDS: PRASUGREL HCL 10 MG TAB PO SCH (08:24)
[2017-06-04] MEDS: PANTOPRAZOLE SODIUM 40 MG TAB PO SCH (08:25)
[2017-06-04] MEDS: ALLOPURINOL 100 MG TAB PO SCH (08:25)
[2017-06-04] MEDS: ATORVASTATIN CALCIUM 10 MG TAB PO SCH (08:25)
[2017-06-04] MEDS: ASPIRIN EC 325 MG TAB PO SCH (08:26)
[2017-06-04] MEDS: METOPROLOL TARTRATE 50 MG TAB PO SCH (08:26)
--- NOTE | 2017-06-04 09:25 | SOAPPROG ---
[facility]ENIO Progress Note Assessment/Plan: Assessment: 1. Non ST segment elevation myocardial infarction status post PCI of the circumflex/OM2 and dominant right coronary artery. 2. Chronic renal failure status post dye load. 3. Hypertension. 4. Hyperlipidemia Procedures to date: 06/03/2016 Left heart catheterization with PCI and stenting of the circumflex and right coronary artery. Echocardiogram Impression: Day 1 status post non-Q-wave myocardial infarction with occlusion of a large obtuse marginal branch status post successful PCI. Creatinine remained stable overnight. Modest hematoma at catheterization site with hemoglobin of 9.8 mg/dL. Patient has had no further chest pain and appears to be doing well without significant ectopy. Plan: Up and around today. Continued follow-up of renal function post dye load. Continue current medical therapy including dual antiplatelet therapy. Goal LDL cholesterol less than 70 mg/dL. 06/04/17 09:21 Subjective: Uneventful night. No further chest pain, Cardiac review of systems is negative for chest pain, shortness of breath, PND , orthopnea, palpitations, syncope, near syncope, edema. Objective: ECG reveals sinus rhythm without acute ST-T changes. Vital Signs Temp Pulse Resp BP Pulse Ox 36.8 C 79 18 143/73 H 94 06/04/17 07:15 06/04/17 07:15 06/04/17 07:15 06/04/17 07:15 06/04/17 08:42 Laboratory Results 06/04/17 04:17 06/04/17 04:17 06/03/17 06/04/17 06/05/17 05:59 05:59 05:59 Intake Total 1000 2700 Output Total 950 Balance 1000 1750 PT 14.9 SEC (12.0-15.0) 06/03/17 05:20 INR 1.17 (0.83-1.16) H 06/03/17 05:20 Laboratory Tests 06/03/17 06/03/17 06/04/17 00:58 05:20 04:17 Creatinine 2.2 H Troponin I 2.510 H 4.780 H LDL Cholesterol, Calc 85 Medications Generic Name Dose Route Start Last Admin Trade Name Freq PRN Reason Stop Dose Admin Prasugrel 10 mg 06/04/17 09:00 06/04/17 08:24 Effient PO 12/01/17 08:59 10 mg DAILY LARA Amlodipine Besylate 10 mg 06/03/17 11:30 06/04/17 08:25 Norvasc PO 11/30/17 11:29 10 mg DAILY [facility] Aspirin Buffered 325 mg 06/03/17 09:00 06/04/17 08:26 Aspirin Ec PO 11/30/17 08:59 325 mg DAILY [facility] Atorvastatin Calcium 10 mg 06/03/17 11:30 06/04/17 08:25 Lipitor PO 11/30/17 11:29 10 mg DAILY [facility] Metoprolol Tartrate 50 mg 06/03/17 11:30 06/04/17 08:26 Lopressor PO 11/30/17 11:29 50 mg DAILY [facility] Physical Exam - Physical Exam General Appearance: alert, no apparent distress EENT: PERRL/EOMI Neck: non-tender, full range of motion Respiratory: chest non-tender, lungs clear Cardiac/Chest: normal peripheral pulses, regular rate, rhythm, No edema, No gallop, No JVD Peripheral Pulses: 1+: carotid (R), carotid (L), dorsalis-pedis (R), dorsalis- pedis (L), 2+: femoral (R) (Mild ecchymosis, small hematoma, no bruit), femoral (L) Abdomen: normal bowel sounds, non-tender, soft Back: Normal inspection Skin: normal color, warm/dry Lymphatic: no adenopathy Extremities: No pedal edema, No calf tenderness Neuro/Psych: no motor/sensory deficits, alert, normal mood/affect ICD10 Worksheet Patient Problems: Problems Problem Status Onset Status post coronary artery stent placement Acute Status post insertion of drug-eluting stent into right coronary artery for coronary artery disease Acute NSTEMI (non-ST elevated myocardial infarction) Acute Chest pain Acute Review of Systems - Review of Systems Constitutional: denies: chills, fever EENTM: no symptoms reported Respiratory: no symptoms reported Cardiac: no symptoms reported Gastrointestinal/Abdominal: no symptoms reported Genitourinary: no symptoms Musculoskelatal: no symptoms Skin: no symptoms Neurological: no symptoms Hematologic/Lymphatic: no symptoms reported Immunologic/allergic: no symptoms reported
[2017-06-04] MEDS ORDERED: ATORVASTATIN CALCIUM 10 MG TAB PO ONE (11:00)
--- NOTE | 2017-06-04 12:02 | CPEKG ---
Heart Rate: 66 RR Interval: 909 P-R Interval: 184 QRSD Interval: 90 QT Interval: 400 QTC Interval: 420 P Marian[place]: 2 QRS [place]: -56 T Wave [place]: 62 EKG Severity - ABNORMAL ECG - EKG Impression: SINUS RHYTHM EKG Impression: LEFT ANTERIOR FASCICULAR BLOCK EKG Impression: LOW VOLTAGE IN FRONTAL LEADS EKG Impression: BORDERLINE T WAVE ABNORMALITIES Electronically Signed By: Miguel Angel Flores 05-Jun-2017 10:06:19
--- NOTE | 2017-06-04 13:06 | HOSPPROG ---
Hospitalist Progress Note Assessment/Plan: 82 yo M with PMH of HTN, CKD, bladder/prostate cancer presenting with nstemi # nstemi: s/p cath and 2 vessel PCI, trop last at 4.7, currently chest pain free , no new issues on personal review of telemetry monitoring # acute on chronic anemia: has had decrease in hct from 38 to 29, presumably due to groin hematoma. Will continue to monitor. # cad: as above, will dc on asa, statin, bb, effient. # ckd: baseline creatinine of 2.3 approximately, currently at baseline, will monitor closely given dye load and worsening anemia. If remains stable overnight can likely dc in am. # htn: currently mildly hypotensive on home metoprolol, was on low dose lisinopril which is being held for now, will resume if bp trends up # leukocytosis: has been elevated consistently for the last several months, largely neutrophils, associated macrocytosis. Recommend outpatient f/u to determine if this is stress response or more chronic issue requiring further evaluation. # h/o bladder/prostate cancer # IP status, will need > 48 hours stay for eval/mgmt of above Subjective: no significant overnight events, feeling well today, eating and drinking without issues, no chest pain or sob, no leg swelling, groin is a bit swollen but stable Objective: Vital Signs Temp Pulse Resp BP Pulse Ox 36.8 C 79 18 143/73 H 94 06/04/17 07:15 06/04/17 07:15 06/04/17 07:15 06/04/17 07:15 06/04/17 08:42 Laboratory Results 06/04/17 04:17 06/04/17 04:17 06/03/17 06/04/17 06/05/17 05:59 05:59 05:59 Intake Total 1000 2700 Output Total 950 Balance 1000 1750 PT 14.9 SEC (12.0-15.0) 06/03/17 05:20 INR 1.17 (0.83-1.16) H 06/03/17 05:20 awake alert nad anicteric op clear rrr no mrg cta b soft nt nd no cce warm dry well perfused oriented appropriate ICD10 Worksheet Patient Problems: Problems Problem Status Onset Status post coronary artery stent placement Acute Status post insertion of drug-eluting stent into right coronary artery for coronary artery disease Acute NSTEMI (non-ST elevated myocardial infarction) Acute Chest pain Acute
[2017-06-05] MEDS: NITROGLYCERIN 2% 1 GM PACKET TP SCH ×4 (00:13→09:10)
[2017-06-05 04:04] LABS: % IMMATURE GRANULYOCYTES 0.4 % (0.0-1.1); ABSOLUTE IMMATURE GRANULOCYTES 0.05 10^3/uL (0.00-0.10); ADD DIFF? NO; ADD MORPH? NO; ADD SCAN? NO; ATYPICAL LYMPHOCYTE FLAG 0 (0-99); FRAGMENT RBC FLAG 0 (0-99); HEMATOCRIT 24.4 % (40.0-51.0); HEMOGLOBIN 7.9 g/dL (13.7-17.5); LEFT SHIFT FLG 30 (0-99); LIPEMIA HEMOLYSIS FLAG 80 (0-99); MEAN CELL HEMOGLOBIN 33.6 pg (27.9-34.1); MEAN CELL HEMOGLOBIN CONCENTR. 32.4 g/dL (32.4-36.7); MEAN CELL VOLUME 103.8 fL (81.5-99.8); MEAN PLATELET VOLUME 10.7 fL (8.7-11.7); PLATELET CLUMPS FLAG 10 (0-99); PLATELET COUNT 183 10^3/uL (150-400); RED BLOOD CELL COUNT 2.35 10^6/uL (4.40-6.38); RED CELL DISTRIBUTION WIDTH 14.6 % (11.5-15.2)
[2017-06-05 04:17] LABS: POTASSIUM 5.3 mEq/L (3.5-5.2)
[2017-06-05 04:18] LABS: ANION GAP 6 mEq/L (8-16); CALCIUM 8.5 mg/dL (8.5-10.4); CARBON DIOXIDE 20 mEq/l (22-31); CHLORIDE 114 mEq/L (97-110); CREATININE 2.5 mg/dL (0.7-1.3); GLOMERULAR FILTRATION RATE 25; GLUCOSE 86 mg/dL (70-100); SODIUM 140 mEq/L (134-144)
[2017-06-05 08:37] VITALS: PULSE 96; RESP 10
[2017-06-05] MEDS ORDERED: ATORVASTATIN CALCIUM 40 MG TAB PO SCH (09:00)
[2017-06-05] MEDS: ASPIRIN EC 325 MG TAB PO SCH (09:08)
[2017-06-05] MEDS: METOPROLOL TARTRATE 50 MG TAB PO SCH (09:08)
[2017-06-05] MEDS: ALLOPURINOL 100 MG TAB PO SCH (09:08)
[2017-06-05] MEDS: PRASUGREL HCL 10 MG TAB PO SCH (09:08)
[2017-06-05] MEDS: PANTOPRAZOLE SODIUM 40 MG TAB PO SCH (09:08)
[2017-06-05 11:59] VITALS: BP 127/64; TEMP 97.6; O2SAT 95
--- NOTE | 2017-06-05 12:56 | HOSPPROG ---
Hospitalist Progress Note Assessment/Plan: 82 yo M with PMH of HTN, CKD, bladder/prostate cancer presenting with nstemi # nstemi: s/p cath and 2 vessel PCI, trop last at 4.7, currently chest pain free , no new issues on personal review of telemetry monitoring # acute blood loss anemia: has had decrease in hct from 38 to 24, in setting of groin hematoma. Will recheck h/h this afternoon to be sure no e/o continued bleed. # cad: as above, will dc on asa, statin, bb, effient. # ckd: baseline creatinine of 2.3 approximately, currently at baseline, will monitor closely given dye load and worsening anemia. # htn: currently mildly hypotensive on home metoprolol, was on low dose lisinopril which is being held for now, will resume if bp trends up # leukocytosis: has been elevated consistently for the last several months, largely neutrophils, associated macrocytosis. Recommend outpatient f/u to determine if this is stress response or more chronic issue requiring further evaluation. # h/o bladder/prostate cancer # IP status, will need > 48 hours stay for eval/mgmt of above Subjective: no significant overnight events, patient states he feels like "an 16 year old", eager to dc Objective: Vital Signs Temp Pulse Resp BP Pulse Ox 36.4 C 96 10 L 127/64 H 95 06/05/17 11:57 06/05/17 08:00 06/05/17 11:57 06/05/17 11:57 06/05/17 11:57 Laboratory Results 06/05/17 03:50 06/05/17 03:50 06/04/17 06/05/17 06/06/17 05:59 05:59 05:59 Intake Total 2700 350 620 Output Total 950 Balance 1750 350 620 PT 14.9 SEC (12.0-15.0) 06/03/17 05:20 INR 1.17 (0.83-1.16) H 06/03/17 05:20 awake alert nad anicteric op clear rrr no mrg cta b soft nt nd no cce warm dry well perfused oriented appropriate ICD10 Worksheet Patient Problems: Problems Problem Status Onset Chest pain Acute Chronic Disease Mgmt/Transitional Care Acute NSTEMI (non-ST elevated myocardial infarction) Acute Status post coronary artery stent placement Acute Status post insertion of drug-eluting stent into right coronary artery for coronary artery disease Acute
[2017-06-05 13:32] LABS: HEMATOCRIT 28.5 % (40.0-51.0); HEMOGLOBIN 9.3 g/dL (13.7-17.5)
--- NOTE | 2017-06-05 14:40 | PDDCSUM ---
Discharge Summary Discharge Summary: Dates of service 06/03-06/05/17 Discharge dx: # nstemi # acute blood loss anemia # groin hematoma # CAD # CKD # HTN # leukocytosis # h/o bladder/prostate cancer Consultations: cardiology Procedures performed: coronary angiography/2 vessel PCI Hospital course by problem: # nstemi: s/p cath and 2 vessel PCI, trop last at 4.7, chest pain free post PCI, # acute blood loss anemia: has had decrease in hct from 38 to 28, in setting of groin hematoma. Groin is soft, ecchymosis stable, do not suspect ongoing bleeding # cad: as above, will dc on asa, statin, bb, effient. # ckd: baseline creatinine of 2.3 approximately, currently at baseline, will monitor closely given dye load and worsening anemia. Holding lisinopril for now given recent dye load, will f/u with renal/cards/pcp and determine when/if to resume tonie-i # htn: currently mildly hypotensive on home metoprolol, was on low dose lisinopril which is being held for now as above # leukocytosis: has been elevated consistently for the last several months, largely neutrophils, associated macrocytosis. Recommend outpatient f/u to determine if this is stress response or more chronic issue requiring further evaluation. No e/o infection # h/o bladder/prostate cancer Dc home f/u with PCP/renal/cardiology > 35 minutes spent in dc of patient, more than half in face to face counseling and coordination of care
== END 2017-06-05 16:46 | disposition home or self-care (01) | DRG 246 ==
LOC: EDUNIT# → OBSVTOIN 01:32 → F2W 06:05
PROVIDERS: ADMIT Internal Medicine; ATTEND Internal Medicine
PROC: B2161ZZ Fluoroscopy of Right and Left Heart using Low Osmolar Contrast (ICD-10-PCS; principal; 2017-06-03 11:18)
PROC: B2151ZZ Fluoroscopy of Left Heart using Low Osmolar Contrast (ICD-10-PCS; principal; 2017-06-03 11:18)
PROC: 027 Heart and Great Vessels, Dilation (ICD-10-PCS; principal; 2017-06-03 11:18)
PROC: B2111ZZ Fluoroscopy of Multiple Coronary Arteries using Low Osmolar Contrast (ICD-10-PCS; principal; 2017-06-03 11:18)
PROC: 4A023N7 Measurement of Cardiac Sampling and Pressure, Left Heart, Percutaneous Approach (ICD-10-PCS; principal; 2017-06-03 11:18)
DX: I21.4 Non-ST elevation (NSTEMI) myocardial infarction (principal); I25.10 Atherosclerotic heart disease of native coronary artery without angina pectoris; D62 Acute posthemorrhagic anemia; I12.0 Hypertensive chronic kidney disease with stage 5 chronic kidney disease or end stage renal disease; N18.6 End stage renal disease; M10.9 Gout, unspecified; E78.5 Hyperlipidemia, unspecified; Z85.46 Personal history of malignant neoplasm of prostate; Z85.51 Personal history of malignant neoplasm of bladder
CPT/HCPCS: 96374; C1725; C1760; C1769; C1874; C1887; C9600; C9606; J1327; J1644; J2250; J2405; J3010; Q9967

== ENCOUNTER 2017-06-19 15:41 | Emergency (ER) | payer OTHER ==
[2017-06-19 15:50] VITALS: TEMP 97.7
--- NOTE | 2017-06-19 16:11 | CPEKG ---
Heart Rate: 68 RR Interval: 882 P-R Interval: 192 QRSD Interval: 96 QT Interval: 408 QTC Interval: 434 P [place]: 13 QRS [place]: -64 T Wave [place]: 78 EKG Severity - ABNORMAL ECG - EKG Impression: SINUS RHYTHM EKG Impression: LEFT ANTERIOR FASCICULAR BLOCK EKG Impression: NONSPECIFIC T ABNORMALITIES, LATERAL LEADS Electronically Signed By: Anaya Vargas 19-Jun-2017 20:58:24
[2017-06-19 16:15] LABS: % IMMATURE GRANULYOCYTES 0.4 % (0.0-1.1); ABSOLUTE IMMATURE GRANULOCYTES 0.05 10^3/uL (0.00-0.10); ADD DIFF? NO; ADD MORPH? NO; ADD SCAN? YES; FRAGMENT RBC FLAG 0 (0-99); HEMATOCRIT 30.8 % (40.0-51.0); HEMOGLOBIN 10.1 g/dL (13.7-17.5); LEFT SHIFT FLG 20 (0-99); LIPEMIA HEMOLYSIS FLAG 80 (0-99); MEAN CELL HEMOGLOBIN 33.4 pg (27.9-34.1); MEAN CELL HEMOGLOBIN CONCENTR. 32.8 g/dL (32.4-36.7); PLATELET CLUMPS FLAG 0 (0-99); PLATELET COUNT 462 10^3/uL (150-400); RED BLOOD CELL COUNT 3.02 10^6/uL (4.40-6.38); RED CELL DISTRIBUTION WIDTH 14.5 % (11.5-15.2)
[2017-06-19 16:20] LABS: ATYPICAL LYMPHOCYTE FLAG 110 (0-99)
--- NOTE | 2017-06-19 16:27 | EDPHY ---
H & P Stated Complaint: acute renal failure/elevated labs needs potassium levels and us Time Seen by Provider: 06/19/17 16:02 HPI/ROS: CHIEF COMPLAINT: Acute renal dysfunction HISTORY OF PRESENT ILLNESS: 82-year-old male history of recent NSTEMI post catheterization 2 weeks ago seen at [facility] was seen by Dr Troncoso today for re-evaluation was noted to have an elevated potassium of 5.9 and creatinine of 3.6 and recommend to go to the emergency department for further evaluation including evaluation of right lower extremity ultrasound. He is on Effient and notes continued right lower extremity asymmetrical soft tissue swelling but denies groin pain, denies lower extremity paresthesias or sensory or motor deficit. Notes that the ecchymosis to his right lower extremity is progressively improving and resolving. He denies: Chest pain, dyspnea, back pain, abdominal pain, nausea, vomiting, abnormal urinary habits. Primary care provider: Dr. Ellie Claire. REVIEW OF SYSTEMS: A ten point review of systems was performed and is negative with the exception of the items mentioned in the HPI PAST MEDICAL & SURGICAL HISTORY: NSTEMI. Cardiac catheterization. Coronary artery disease. Hypertension. Bladder prostate cancer. SOCIAL HISTORY: .nonsmoker PHYSICAL EXAM (Prior to examination, patient consented to physical exam, hands were washed and my usual and customary physical exam procedures followed) 1) GENERAL: Well-developed, well-nourished, alert and oriented. Appears to be in no acute distress. 2) HEAD: Normocephalic, atraumatic 3) HEENT: Pupils equal, round, reactive to light bilaterally. Sclera anicteric. Nasopharynx, oropharynx, clear, no lesions. Ears bilaterally with normal tympanic membranes. 4) NECK: Full range of motion, no meningeal signs. 5) LUNGS: Clear auscultation bilaterally, no wheezes, no rhonchi, no retractions. 6) HEART: Regular rate and rhythm, no murmur, no heave, no gallop. 7) ABDOMEN: No guarding, no rebound, no focal tenderness, negative McBurney's, negative Domínguez's, negative Rovsing's, negative peritoneal sign, 8) MUSCULOSKELETAL: right lower extremity: There is resolving ecchymosis of the right lower extremity. There is resolving ecchymosis to all toes. Is normal color normal temperature otherwise. Capillary refill less than 2 seconds. Negative Homans no palpable cord. DP PT pulses present and brisk. Soft compartments of the right lower extremity 9) BACK: No CVA tenderness, no midline vertebral tenderness, no fluctuance, no step-off, no obvious trauma, no visual or palpable abnormality. 10) SKIN: No rash, no petechiae. 11) : Normal male external genitalia, no scrotal or testicular abnormality, no soft tissue swelling, no scrotal discoloration. A resolving ecchymosis right inguinal region with firmness however no tenderness no fluctuance. DIFFERENTIAL DIAGNOSIS: in no particular include but limited to pseudo aneurysm, DVT, acute renal failure, hyperkalemia - Personal History Current Tetanus/Diphtheria Vaccine: Yes - Medical/Surgical History Hx Asthma: No Hx Chronic Respiratory Disease: No Hx Diabetes: No Hx Cardiac Disease: Yes Hx Renal Disease: Yes Hx Cirrhosis: No Hx Alcoholism: No Hx HIV/AIDS: No Hx Splenectomy or Spleen Trauma: No Other PMH: Hypertension, gout, prostate CA & Bladder tumor cardiac stents - Social History Smoking Status: Never smoked Constitutional: Initial Vital Signs Temperature (C) 36.5 C 06/19/17 15:44 Heart Rate 68 06/19/17 15:44 Respiratory Rate 18 06/19/17 15:44 Blood Pressure 145/80 H 06/19/17 15:44 O2 Sat (%) 94 06/19/17 15:44 O2 Delivery Mode Room Air Allergies/Adverse Reactions: No Known Allergies Allergy (Verified 06/19/17 15:43) Home Medications: Medication Instructions Recorded ALPRAZolam [Xanax 0.25 MG (*)] 0.125 mg PO HS PRN 06/03/17 Allopurinol [Allopurinol 100 MG 100 mg PO DAILY 06/03/17 (*)] Fluticasone Nasal [Flonase Nasal 1 sprays NASAL DAILY PRN 06/03/17 [place]] Metoprolol Tartrate [Lopressor 50 50 mg PO DAILY 06/03/17 mg (*)] Omeprazole [Prilosec 20 mg] 20 mg PO DAILY 06/03/17 amLODIPine BESYLATE [Norvasc 10 mg 10 mg PO DAILY 06/03/17 (*)] Aspirin EC [Aspirin EC 325 mg (*)] 325 mg PO DAILY tab 06/05/17 Atorvastatin Calcium [Lipitor 40 40 mg PO DAILY #30 tab 06/05/17 mg (*)] Calcium Carbonate [Tums 500MG (*)] 500 - 1,000 mg PO Q2 PRN #0 06/05/17 tab.chew Prasugrel HCl [Effient 10mg (*)] 10 mg PO DAILY #30 tab 06/05/17 Temazepam [Restoril 15 MG (*)] 15 mg PO HS PRN #15 cap 06/05/17 Medical Decision Making - Diagnostics Imaging Results: Imaging Impressions Abdomen/Pelvis Ultrasound 06/19/17 16:04 Impression: 1. No hydronephrosis. 2. Nonspecific avascular 9-mm hypoechoic cystic lesion in the right kidney. This probably represents a small incidental cyst. 3. No postvoid residual. Extremity Venous Study 06/19/17 16:04 Impression: No evidence of deep vein thrombosis in the right leg. Findings and recommendations discussed with Anisha Grover at 1735 hour, . Final report concurs with initial preliminary interpretation. Hemodialysis Access Duplex US 06/19/17 16:27 Impression: 1. No pseudoaneurysm or fistula. 2. Long but thin hematoma associated with soft tissue swelling at the medial thigh. Findings and recommendations discussed with Rut Grover PA-C, at 1735 hours , on June 19, 2017. Final report concurs with initial preliminary interpretation. ED Course/Re-evaluation: 4:15 p.m.: Discussed case with Dr. Vargas in the ER who received word of the patient coming to emergency department from Dr Troncoso, nephrology. 6:02 p.m.: Phone consultation with [facility] on-call provider, Zeyad , who is familiar with the patient's care by Dr. Troncoso, I explained the ultrasonographic imaging, the laboratory results showing a a creatinine of 3.6. I discussed with the patient hospital admission he prefers to go home. I discussed this with the on-call provider and she recommended patient call the office 1st thing in the morning, to be seen tomorrow and that he may necessitate dialysis. Patient describes normal urine output, no back or flank pain, no lower extremity pain. 6:38 p.m.: Re-evaluation of the patient he continues to feel well, he has no complaints of pain or discomfort including no back or flank pain no abdominal pain no groin pain, lower extremity has brisk DP and PT pulses with brisk capillary refill. He continues to have multiple areas of resolving ecchymosis however no evidence at this time of arterial occlusive disorder Of the lower extremity. He would like to go home and agrees to contact Dr. Troncoso in the morning. I discussed this with Dr. Anaya Vargas in in the ER who is in agreement. - Data Points Laboratory Results: Laboratory Results 06/19/17 16:00 06/19/17 16:00 06/19/17 06/19/17 16:00 16:00 WBC 11.62 10^3/uL H 10^3/uL (3.80-9.50) RBC 3.02 10^6/uL L 10^6/uL (4.40-6.38) Hgb 10.1 g/dL L g/dL (13.7-17.5) Hct 30.8 % L % (40.0-51.0) MCV 102.0 fL H fL (81.5-99.8) MCH 33.4 pg pg (27.9-34.1) MCHC 32.8 g/dL g/dL (32.4-36.7) RDW 14.5 % % (11.5-15.2) Plt Count 462 10^3/uL H 10^3/uL (150-400) MPV 10.0 fL fL (8.7-11.7) Neut % (Auto) 66.9 % % (39.3-74.2) Lymph % (Auto) 15.5 % % (15.0-45.0) Pender % (Auto) 10.6 % % (4.5-13.0) Eos % (Auto) 5.9 % % (0.6-7.6) Baso % (Auto) 0.7 % % (0.3-1.7) Nucleat RBC Rel Count 0.0 % % (0.0-0.2) Absolute Neuts (auto) 7.78 10^3/uL H 10^3/uL (1.70-6.50) Absolute Lymphs (auto) 1.80 10^3/uL 10^3/uL (1.00-3.00) Absolute Monos (auto) 1.23 10^3/uL H 10^3/uL (0.30-0.80) Absolute Eos (auto) 0.68 10^3/uL H 10^3/uL (0.03-0.40) Absolute Basos (auto) 0.08 10^3/uL 10^3/uL (0.02-0.10) Absolute Nucleated RBC 0.00 10^3/uL 10^3/uL (0-0.01) Immature Gran % 0.4 % % (0.0-1.1) Immature Gran # 0.05 10^3/uL 10^3/uL (0.00-0.10) Sodium 141 mEq/L mEq/L (134-144) Potassium 5.0 mEq/L mEq/L (3.5-5.2) Chloride 108 mEq/L mEq/L (97-110) Carbon Dioxide 19 mEq/l L mEq/l (22-31) Anion Gap 14 mEq/L mEq/L (8-16) BUN 64 mg/dL H mg/dL (7-23) Creatinine 3.6 mg/dL H mg/dL (0.7-1.3) Estimated GFR 16 Glucose 138 mg/dL H mg/dL (70-100) Calcium 9.4 mg/dL mg/dL (8.5-10.4) Medications Given: Discontinued Medications Sodium Chloride (Ns) 500 mls @ 0 mls/hr IV ONCE ONE PRN Reason: Wide Open Stop: 06/19/17 17:10 Last Admin: 06/19/17 18:08 Dose: 500 mls Departure - Departure Disposition: Home, Routine, Self-Care Clinical Impression: Elevated serum creatinine, Right lower extremity ecchymosis Condition: Good Instructions: Chronic Kidney Disease (ED) Additional Instructions: Return emergency department immediately if you develop discoloration of your leg , if you develop back or abdominal pain or any other symptoms that concern you Referrals: Ellie Claire MD [Primary Care Provider] - 1-2 days without fail Jp Troncoso MD [Medical Doctor] - 06/20/17 (Call Dr. Troncoso's office in the morning)
[2017-06-19 16:36] LABS: ANION GAP 14 mEq/L (8-16); CALCIUM 9.4 mg/dL (8.5-10.4); CARBON DIOXIDE 19 mEq/l (22-31); CHLORIDE 108 mEq/L (97-110); CREATININE 3.6 mg/dL (0.7-1.3); GLOMERULAR FILTRATION RATE 16; GLUCOSE 138 mg/dL (70-100); SODIUM 141 mEq/L (134-144)
[2017-06-19 16:46] LABS: SCAN NEGATIVE
[2017-06-19] MEDS ORDERED: NS 500 ML IV ONE (17:09)
[2017-06-19 17:37] VITALS: BP 135/72; PULSE 70; RESP 16; O2SAT 93
== END 2017-06-19 18:20 | disposition home or self-care (01) ==
DX: M79.81 Nontraumatic hematoma of soft tissue (principal); R79.89 Other specified abnormal findings of blood chemistry; I10 Essential (primary) hypertension; I25.10 Atherosclerotic heart disease of native coronary artery without angina pectoris; Z79.82 Long term (current) use of aspirin; Z85.46 Personal history of malignant neoplasm of prostate

== ENCOUNTER → 2017-07-03 | Outpatient (CLI) | payer OTHER | LOC: BHFA 11:00 | PROVIDERS: ATTEND Internal Medicine Cardiovascular Disease | DX: I21.4 Non-ST elevation (NSTEMI) myocardial infarction (principal); N18.9 Chronic kidney disease, unspecified; R53.83 Other fatigue ==

== ENCOUNTER 2017-08-12 21:30 | Emergency (ER) | payer OTHER ==
[2017-08-12 21:41] VITALS: TEMP 98.6; O2SAT 95
--- NOTE | 2017-08-12 21:45 | EDPHY ---
H & P Stated Complaint: left lower leg pain since last night HPI/ROS: HPI CHIEF COMPLAINT: Left lower calf pain HISTORY OF PRESENT ILLNESS: This patient very pleasant 82-year-old male, presents emergency room with left calf pain. He denies any significant cough. It has been present for 24 hours. He has never had a DVT. Does have significant past medical history for coronary artery disease. And hypertension chronic kidney disease. He states 24 hours ago he noticed pain to the left posterior calf and a focal area. He does not remember injuring it. It is worse when he dorsiflexes foot. No significant leg swelling. Denies direct trauma. No fever. Past Medical History: Coronary artery disease, hypertension, chronic kidney disease, gout, prostate and bladder cancer, asthma Past Surgical History: No recent surgery, stents cardiac x3 Social History: Denies daily use drugs alcohol tobacco products. Family History: Noncontributory ROS REVIEW OF SYSTEMS: A comprehensive 10 point review of systems is otherwise negative aside from elements mentioned in the history of present illness. Exam Constitutional appears well nontoxic, triage nursing summary reviewed, vital signs reviewed, awake/alert. Eyes normal conjunctivae and sclera, EOMI, PERRLA. HENT normal inspection, atraumatic, moist mucus membranes, no epistaxis, neck supple/ no meningismus, no raccoon eyes. Respiratory clear to auscultation bilaterally, normal breath sounds, no respiratory distress, no wheezing. Cardiovascular rate normal, regular rhythm, no murmur, no edema, distal pulses normal. Gastrointestinal soft, non-tender, no rebound, no guarding, normal bowel sounds, no distension, no pulsatile mass. Genitourinary no CVA tenderness. Musculoskeletal left lower extremity: Posterior calf, focal tenderness 1 region. It is located mid calf. No palpable cord. No mass. Neurovascular intact good distal pulse. Good cap refill. Pain with dorsiflexion of the foot. Warm extremity. Sensation intact. no midline vertebral tenderness, full range of motion, no calf swelling, no tenderness of extremities, no meningismus, good pulses, neurovascularly intact. Distally has good femoral pulse. Skin pink, warm, & dry, no rash, skin atraumatic. Neurologic awake, alert and oriented x 3, AAOx3, moves all 4 extremities equally, motor intact, sensory intact, CN II-XII intact, normal cerebellar, normal vision, normal speech. Psychiatric normal mood/affect. Heme/Lymph/Immune no lymphadenopathy. Differential Diagnosis: Includes but is not limited to in a particular order calf pull, calf strain, DVT Medical Decision Making: Plan for the patient ultrasound left lower extremity rule out DVT. Re-evaluation: Ultrasound of the left lower extremity The results of the study are shows a ruptured Bedolla cyst. No evidence of DVT.. I discussed the results of this study with the radiologist Dr. Perez Recommend warm compresses. Clifford wrap supportive care. Return emergency room if there is worsening symptoms swelling pain or fever. Source: Patient - Personal History Current Tetanus/Diphtheria Vaccine: Yes Current Tetanus Diphtheria and Acellular Pertussis (TDAP): Yes - Medical/Surgical History Hx Asthma: No Hx Chronic Respiratory Disease: No Hx Diabetes: No Hx Cardiac Disease: Yes Hx Renal Disease: Yes Hx Cirrhosis: No Hx Alcoholism: No Hx HIV/AIDS: No Hx Splenectomy or Spleen Trauma: No Other PMH: Hypertension, gout, prostate CA & Bladder tumor cardiac stents - Social History Smoking Status: Never smoked Constitutional: Initial Vital Signs Temperature (C) 37.0 C 08/12/17 21:39 Heart Rate 76 08/12/17 21:39 Respiratory Rate 20 08/12/17 21:39 Blood Pressure 187/90 H 08/12/17 21:39 O2 Sat (%) 95 08/12/17 21:39 O2 Delivery Mode Room Air Allergies/Adverse Reactions: No Known Allergies Allergy (Verified 08/12/17 21:42) Home Medications: Medication Instructions Recorded Allopurinol [Allopurinol 100 MG 100 mg PO DAILY 06/03/17 (*)] Metoprolol Tartrate [Lopressor 50 50 mg PO DAILY 06/03/17 mg (*)] amLODIPine BESYLATE [Norvasc 10 mg 10 mg PO DAILY 06/03/17 (*)] Aspirin EC [Aspirin EC 325 mg (*)] 325 mg PO DAILY tab 06/05/17 Atorvastatin Calcium [Lipitor 40 40 mg PO DAILY #30 tab 06/05/17 mg (*)] ASPIRIN 08/12/17 Allopurinol 08/12/17 Clopidogrel 08/12/17 LANSOPRAZOLE 08/12/17 Medical Decision Making - Diagnostics Imaging Results: Imaging Impressions Extremity Venous Study 08/12/17 21:51 Impression: 1. No evidence of deep vein thrombosis in the left lower extremity. 2. Findings compatible with a ruptured Bedolla's cyst. Departure - Departure Disposition: Home, Routine, Self-Care Clinical Impression: Calf pain Qualifiers: Laterality: left Qualified Code(s): M79.662 - Pain in left lower leg Bakers cyst Qualifiers: Laterality: left Qualified Code(s): M71.22 - Synovial cyst of popliteal space [ Bedolla], left knee Condition: Good Instructions: Leg Cramps (ED), Muscle Cramp (ED) Additional Instructions: 1. Warm compresses are fine. 2. Clifford wrap for compress. 3. Should improve over the next 1-2 weeks. 4. Return emergency room if there is worsening symptoms questions or concerns. Referrals: Patient,NotPresent [Primary Care Provider] - As per Instructions
[2017-08-12 23:08] VITALS: BP 166/79; PULSE 72; RESP 18
== END 2017-08-12 23:07 | disposition home or self-care (01) ==
LOC: EDUNIT#
DX: M71.22 Synovial cyst of popliteal space [Baker], left knee (principal); I25.10 Atherosclerotic heart disease of native coronary artery without angina pectoris; I12.9 Hypertensive chronic kidney disease with stage 1 through stage 4 chronic kidney disease, or unspecified chronic kidney disease; N18.9 Chronic kidney disease, unspecified; J45.909 Unspecified asthma, uncomplicated; Z79.82 Long term (current) use of aspirin; Z85.46 Personal history of malignant neoplasm of prostate; Z85.51 Personal history of malignant neoplasm of bladder

== ENCOUNTER 2018-01-01 23:35 | Observation (INO) | payer OTHER, MEDICARE ==
--- NOTE | 2018-01-01 23:44 | EDPHY ---
H & P HPI/ROS: HPI CHIEF COMPLAINT: Lightheadedness, high blood pressure HISTORY OF PRESENT ILLNESS: Patient very pleasant 82-year-old male, he has a history of hypertension, coronary artery disease with 3 stents, chronic kidney disease with what he states is a last known creatinine of 3.2, he presents emergency room feeling lightheaded all day. He denies any chest pain or chest pressure denies nausea or shortness of breath. Does complain of lightheadedness he describes a sense of sensation of going to pass out. States that his blood pressure multiple times and is getting high readings at home with a 190s to 200s. He has had no change in his medications. He reports to me his poor kidney function. He denies any fever recent illness denies vomiting or diarrhea. He denies headache or neck pain. Denies focal numbness or tingling denies trouble with his vision. Past Medical History: Hypertension, coronary artery disease with stents, chronic kidney disease Past Surgical History: No recent surgery Social History: He lives locally denies drugs alcohol tobacco. Family History: Noncontributory ROS REVIEW OF SYSTEMS: A comprehensive 10 point review of systems is otherwise negative aside from elements mentioned in the history of present illness. Exam Constitutional he appears well nontoxic, triage nursing summary reviewed, vital signs reviewed, awake/alert. Vital signs noted upon arrival hypertensive Eyes normal conjunctivae and sclera, EOMI, PERRLA. HENT normal inspection, atraumatic, moist mucus membranes, no epistaxis, neck supple/ no meningismus, no raccoon eyes. Respiratory clear to auscultation bilaterally, normal breath sounds, no respiratory distress, no wheezing. Cardiovascular rate normal, regular rhythm, no murmur, no edema, distal pulses normal. Gastrointestinal soft, non-tender, no rebound, no guarding, normal bowel sounds, no distension, no pulsatile mass. Genitourinary no CVA tenderness. Musculoskeletal no midline vertebral tenderness, full range of motion, no calf swelling, no tenderness of extremities, no meningismus, good pulses, neurovascularly intact. Skin pink, warm, & dry, no rash, skin atraumatic. Neurologic awake, alert and oriented x 3, AAOx3, moves all 4 extremities equally, motor intact, sensory intact, CN II-XII intact, normal cerebellar, normal vision, normal speech. Psychiatric normal mood/affect. Heme/Lymph/Immune no lymphadenopathy. Differential Diagnosis: Includes but is not limited to in a particular order hypertensive urgency, hypertensive emergency, worsening kidney function, electrolyte disturbance, infection, cardiac dysfunction, ACS Medical Decision Making: Plan for this patient IV establishment full cardiac cath rn obtain blood work, EKG, troponin, kidney function, and close monitoring. Re-evaluate. Re-evaluation: 1230AM: Patient's blood work reviewed. Elevated creatinine BUN. I have ordered him 500 cc of fluid for lightheadedness and this elevated creatinine and BUN. Plan will be for admission for lightheadedness and hypertension. His EKG does not show an acute ischemic event. Troponin still pending. EKG interpretation by me on record in [employer] system. Impression time of EKG 02/07/2048, sinus rhythm rate of 62. Similar to previous EKG dated 2016 appreciate acute ischemic change on this EKG. Chest x-ray reviewed. Similar to previous chest x-ray slightly larger cardiomegaly. I do not appreciate overt failure. I have admitted this patient to Dr. Hubbard the hospalist for HTN, and Lightheadedness. Denies chest pressure shortness of breath. Vital signs are stable he is hypertensive. Source: Patient, EMS - Medical/Surgical History Hx Asthma: No Hx Chronic Respiratory Disease: No Hx Diabetes: No Hx Cardiac Disease: Yes Hx Renal Disease: Yes Hx Cirrhosis: No Hx Alcoholism: No Hx HIV/AIDS: No Hx Splenectomy or Spleen Trauma: No Other PMH: Hypertension, gout, prostate CA & Bladder tumor cardiac stents - Social History Smoking Status: Never smoked Constitutional: Initial Vital Signs Temperature (C) 36.4 C 01/01/18 23:35 Heart Rate 60 01/01/18 23:35 Respiratory Rate 16 01/01/18 23:35 Blood Pressure 195/77 H 01/01/18 23:35 O2 Sat (%) 94 01/01/18 23:35 O2 Delivery Mode Room Air Allergies/Adverse Reactions: No Known Allergies Allergy (Verified 08/12/17 21:42) Home Medications: Medication Instructions Recorded Allopurinol [Allopurinol 100 MG 100 mg PO DAILY 06/03/17 (*)] Aspirin [Aspirin 81mg (*)] 81 mg PO DAILY 08/12/17 Clopidogrel Bisulfate [Plavix (*)] 75 mg PO DAILY 09/23/17 Sodium Bicarbonate [Na Bicarb] 650 mg PO DAILY 01/01/18 ALPRAZolam [Xanax 0.25 MG (*)] 0.25 mg PO HS 01/02/18 Ascorbic Acid [Vitamin C 250 mg 250 mg PO DAILY 01/02/18 (*)] Atorvastatin Calcium [Lipitor 10 10 mg PO DAILY 01/02/18 mg (*)] Cholecalciferol Vit D3 [Vitamin D3 2,000 units PO DAILY 01/02/18 2000 units tab (OTC)] Furosemide [Lasix 20 MG (*)] 2 tab PO DAILY #0 01/02/18 Metoprolol Succinate Xr [Toprol Xl 25 mg PO DAILY 01/02/18 25 mg (*)] Omeprazole [Prilosec 20 mg] 40 mg PO DAILY 01/02/18 hydrALAZINE [Apresoline] 25 mg PO BID #60 tab 01/02/18 Medical Decision Making - Data Points Laboratory Results: Laboratory Results 01/01/18 23:45 01/01/18 23:45 Medications Given: Discontinued Medications Allopurinol (Allopurinol) 100 mg PO DAILY LARA Stop: 07/01/18 08:59 Last Admin: 01/02/18 09:23 Dose: 100 mg Amlodipine Besylate (Norvasc) 5 mg PO DAILY LARA Stop: 07/01/18 08:59 Last Admin: 01/02/18 09:56 Dose: 5 mg Ascorbic Acid (Vitamin C) 250 mg PO DAILY LARA Stop: 07/01/18 08:59 Last Admin: 01/02/18 13:00 Dose: 250 mg Aspirin (Aspirin) 325 mg PO EDNOW ONE Stop: 01/02/18 00:08 Last Admin: 01/02/18 00:25 Dose: Not Given Aspirin (Aspirin) 81 mg PO DAILY LARA Stop: 07/01/18 08:59 Last Admin: 01/02/18 09:23 Dose: 81 mg Atorvastatin Calcium (Lipitor) 10 mg PO DAILY LARA Stop: 07/01/18 08:59 Last Admin: 01/02/18 09:24 Dose: 10 mg Cholecalciferol (Vitamin D) 2,000 units PO DAILY LARA Stop: 07/01/18 08:59 Last Admin: 01/02/18 09:23 Dose: 2,000 units Clopidogrel Bisulfate (Plavix) 75 mg PO DAILY LARA Stop: 07/01/18 08:59 Last Admin: 01/02/18 09:24 Dose: 75 mg Furosemide (Lasix) 20 mg PO DAILY LARA Stop: 07/01/18 08:59 Last Admin: 01/02/18 09:24 Dose: 20 mg Heparin Sodium (Porcine) (Heparin Sc Injection) 5,000 unit SC 0600,1400,2200 LARA Stop: 07/01/18 05:59 Last Admin: 01/02/18 13:16 Dose: 5,000 unit Sodium Chloride (Ns) 500 mls @ 0 mls/hr IV ONCE ONE PRN Reason: Wide Open Stop: 01/02/18 00:30 Last Admin: 01/02/18 00:37 Dose: 500 mls Metoprolol Succinate (Toprol Xl) 25 mg PO DAILY LARA Stop: 07/01/18 08:59 Last Admin: 01/02/18 09:24 Dose: 25 mg Sodium Bicarbonate (Na Bicarb) 650 mg PO DAILY LARA Stop: 07/01/18 08:59 Last Admin: 01/02/18 09:24 Dose: 650 mg Departure - Departure Disposition: [facility] Clinical Impression: Hypertension Qualifiers: Hypertension type: unspecified Qualified Code(s): I10 - Essential (primary) hypertension Kidney injury Qualifiers: Encounter type: initial encounter Laterality: unspecified laterality Qualified Code(s): S37.009A - Unspecified injury of unspecified kidney, initial encounter Condition: Good
[2018-01-02] MEDS ORDERED: ASPIRIN 325 MG TAB PO ONE (00:07)
--- NOTE | 2018-01-02 00:13 | CPEKG ---
Heart Rate: 62 RR Interval: 968 P-R Interval: 200 QRSD Interval: 106 QT Interval: 488 QTC Interval: 496 P [place]: 35 QRS [place]: -30 T Wave [place]: 47 EKG Severity - BORDERLINE ECG - EKG Impression: SINUS RHYTHM EKG Impression: BORDERLINE IVCD WITH LAD EKG Impression: BORDERLINE PROLONGED QT INTERVAL Electronically Signed By: Arnold Roberts 02-Jan-2018 06:50:26
[2018-01-02 00:14] LABS: PLATELET COUNT 287 10^3/uL (150-400)
[2018-01-02] MEDS ORDERED: ASPIRIN 325 MG TAB ONE (00:20)
[2018-01-02 00:24] LABS: INR 1.14 (0.83-1.16); PROTIME(PATIENT) 14.8 SEC (12.0-15.0)
[2018-01-02] MEDS ORDERED: NS 500 ML IV ONE (00:29)
[2018-01-02] MEDS ORDERED: ACETAMINOPHEN 325 MG TAB PO PRN (03:56)
[2018-01-02] MEDS ORDERED: ONDANSETRON 4 MG/2 ML VIAL IVP PRN (03:56)
[2018-01-02] MEDS: HEPARIN 5,000 UNIT/0.5 ML SYR SC SCH ×2 (05:19→13:16)
[2018-01-02] MEDS ORDERED: HEPARIN SC SCH (06:00)
[2018-01-02] MEDS ORDERED: ASCORBIC ACID 250 MG TAB PO SCH (09:00)
[2018-01-02] MEDS ORDERED: ATORVASTATIN CALCIUM 10 MG TAB PO SCH (09:00)
[2018-01-02] MEDS ORDERED: FUROSEMIDE 20 MG TAB PO SCH (09:00)
[2018-01-02] MEDS ORDERED: NON-FORMULARY NEW DRUG (Omeprazole [Prilosec 20 Mg] 40 MG) PO SCH (09:00)
[2018-01-02] MEDS ORDERED: ENOXAPARIN 40 MG/0.4 ML SYR SC SCH (09:00)
[2018-01-02] MEDS ORDERED: amLODIPine BESYLATE 5 MG TAB PO SCH (09:00)
[2018-01-02] MEDS ORDERED: ALLOPURINOL 100 MG TAB PO SCH (09:00)
[2018-01-02] MEDS ORDERED: CLOPIDOGREL BISULFATE 75 MG TAB PO SCH (09:00)
[2018-01-02] MEDS ORDERED: METOPROLOL SUCCINATE XR 25 MG TAB PO SCH (09:00)
[2018-01-02] MEDS ORDERED: CHOLECALCIFEROL VIT D3 2,000 UNITS TAB/CAP PO SCH (09:00)
[2018-01-02] MEDS ORDERED: ASPIRIN 81 MG CHEWABLE TAB PO SCH (09:00)
[2018-01-02] MEDS ORDERED: SODIUM BICARBONATE 650 MG TAB PO SCH (09:00)
--- NOTE | 2018-01-02 09:06 | GHP ---
[f rep st] HISTORY AND PHYSICAL DATE OF ADMISSION: 01/02/2018 SOURCE: Patient provides history, appears reliable. EMR was also reviewed. CHIEF COMPLAINT: Lightheadedness, presyncope. HISTORY OF PRESENT ILLNESS: This is a very pleasant 82-year-old gentleman with past medical history significant for coronary artery disease with history of stent, CKD stage 4 following contrast and com plications of femoral cath, hypertension, who presents to the emergency department today with complai nts of lightheadedness and elevated blood pressures this evening. The patient reports some positiona l component. The patient denies any acute illnesses. No fevers, chills, nausea, vomiting, shortness of breath, or chest pain. The patient reports at home he was checking his blood pressures and noted that systolics were in the 190s to 200s. Patient states that typically his blood pressures are syst olic in the 130s. The patient denies any focal deficits. No weakness. No headache, changes in visi on. REVIEW OF SYSTEMS: Negative except as noted above. ALLERGIES: No known drug allergies. HOME MEDICATIONS: Sodium bicarb, Lasix, metoprolol 50, clopidogrel, atorvastatin 40, aspirin 325 mg p.o. daily, allopurinol 100 mg p.o. daily. PAST MEDICAL HISTORY: Significant for CAD status post stenting x3 in May of 2017, CKD stage 4 with baseline creatinine approximately 3.3 following contrast and complications of femoral artery site for catheterization, benign essential hypertension. PAST SURGICAL HISTORY: Significant for cath with stent placement. FAMILY HISTORY: Negative for CAD or renal disease. SOCIAL HISTORY: Patient denies any tobacco, drugs, or alcohol. He lives with his of 56 years. He does, however, drink a rare alcohol, but nothing on a daily basis. CODE STATUS: Full, but the patient does not want any prolonged life support. PHYSICAL EXAMINATION: VITAL SIGNS: Upon arrival to the emergency department, blood pressure 195/77, heart rate 60, respiratory rate 16, O2 saturation 94% on room air with temperature 36.4. Vitals gera ilable at time of interview blood pressure 154/64, heart rate 54, respiratory rate 12, O2 saturation 97% on room air. GENERAL: In no acute distress. Very pleasant adult elderly gentleman who appears younger than stated age. He is resting comfortably in the bed. HEAD: Normocephalic, atraumatic. E YES: Extraocular muscles are grossly intact. Pupils equal, round, and reactive to light bilaterally and symmetric. No scleral icterus or conjunctival injection. ENT: Mucous membranes appear moist. No oropharyngeal erythema or exudates. Dentition is intact. NECK: Supple. Trachea midline. CV: Regular rate and rhythm, slightly bradycardic in the 50s to 60s. No murmurs, rubs, or gallops apprec iated. RESPIRATORY: Unlabored breathing. Lungs clear to auscultation bilaterally. No wheezes, ral es, or rhonchi. ABDOMEN: Positive bowel sounds. Soft, nontender to palpation. No rebound, guarding , or masses appreciated. Positive bowel sounds. : No Herrera in place. No suprapubic tenderness t o palpation. EXTREMITIES: Patient without any cyanosis, clubbing, or edema appreciated. Patient wi th 2+ pedal pulses. NEURO: Grossly nonfocal. No facial drooping. Moves all extremities. PSYCH: T hought process, content, and questions are appropriate. The patient is not agitated. LABORATORY STUDIES: WBC 8.89. H and H are 12.0 and 35.4, MCV of 100.0, platelet count 287. No band s. PT is 14.8, INR 1.14, PTT is 31.2. CMP on admission: Sodium 145, potassium 4.4, chloride was 10 9, CO2 16, anion gap 20, BUN 64, creatinine 3.4, GFR of 17, glucose 72, calcium 9.7, magnesium 2.0, t otal bilirubin is 0.3, ALT 24, AST 17, alkaline phosphatase 59. Troponin less than 0.012. BTNP is 3 220. Total protein 7.6, albumin 4.3. TSH of 2.370. Repeated a.m. labs showing sodium 143, potassiu m 4.7, chloride is 112, CO2 is 18, anion gap 13, BUN is 65, creatinine 3.1, glucose 88, calcium is 8. 7, phosphorus 4.3, magnesium 1.9. TEST DATA: EKG reviewed by myself shows normal sinus rhythm in the 60s. QTc is 496. No acute ST el evations or depressions, prominent T-waves in anterior leads. IMAGING DATA: Chest x-ray image report reviewed showing prominent golden bilaterally representing a la rge pulmonary arterial vasculature. Low lung volumes. Left greater than right basilar airspace opac ities representing pneumonia and/or edema in appropriate clinical setting. ASSESSMENT AND PLAN: A very pleasant 82-year-old gentleman who presents to the emergency department with complaints of elevated blood pressures and presyncope. 1. Presyncope, possibly related to accelerated hypertension versus orthostasis. Patient reports ez t since his diagnosis of renal disease, he has been increasingly strict on his dietary intake and flu id status. Will obtain some orthostatics. Patient's troponin is negative. No evidence of focal def icits or concerns for cerebrovascular accident. 2. Accelerated hypertension without any evidence of end-organ damage. Patient did receive a dose of hydralazine in the emergency department with improvement of his blood pressures. Once med list is r econciled, will resume his home medications. 3. Chronic kidney disease, stage 4. Patient is close to his baseline. Will monitor electrolytes. H is potassium has increased slightly, but is still within normal limits on the high end. Will monitor on telemetry. The patient did receive a 500 cc bolus of normal saline in the emergency department. 4. Evidence of pulmonary edema on chest x-ray. Patient without any complaints of dyspnea or chest p ain. Will continue to monitor. Hold off any further IV fluids at this time. Elevated anion gap rel ated to metabolic acidosis with history of chronic kidney disease status post intravenous fluid with improvement of anion gap. 5. History of coronary artery disease. Continue patient's statin, aspirin, Plavix, with history of cardiac catheterization and stenting in May. Once medical record available to resume. 6. Fluid, electrolyte, and nutrition. No further intravenous fluids. Electrolyte monitoring as abo ve and cardiac diet ordered. The patient is quite aware of his dietary needs, so will not order jose d l diet, specifically. He will be able to select. 7. Prophylaxis. Sequential compression devices, heparin renally dosed. 8. Code status is full. DISPOSITION: Patient admitted to observation on PCU status in ICU overflow. Anticipate short hospit al stay. /[id number]/MODL
[2018-01-02 11:44] VITALS: TEMP 97.8
[2018-01-02 12:57] VITALS: BP 155/59; PULSE 64; RESP 12; O2SAT 96
--- NOTE | 2018-01-02 14:25 | PDDCSUM ---
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 This has been going on for a day or 2. There were no headaches, vision changes, neurologic symptoms, vertigo, nausea, chest pain or angina symptoms, shortness of breath, increasing edema, palpitations, fevers. He reported excellent compliance with his daily 20 mg Lasix and daily 25 mg and Toprol XL. Here in the hospital he had no acute changes in EKG, no evidence of pulmonary edema, but some mild pitting edema at ankles which is an ongoing baseline change for him for at least months. There is no fever. Other than his baseline creatinine of an half the patient's laboratory numbers were unremarkable. The patient was brought in the hospital and then a dose of Norvasc and continued on his usual medicines otherwise. The blood pressures came down to the 150-160 range systolic and his lightheadedness completely resolved. I reviewed his most recent echocardiogram from April where his ejection fraction is 45% and he had moderate stenosis and regurgitation of the mitral valve. I reviewed his case in detail with Dr. Zeyad Hay his sales team member. At this point we agree that he needs better blood pressure control. Plan at this point will increase his Lasix from 20 mg daily to 40 mg daily. He will watch his weights and his blood pressures with twice daily blood pressure checks at home. If his blood pressure does not come down to and stay below 140/90 he will add hydralazine 25 mg twice daily which I have given him a prescription for. He will follow up with [facility] and [facility] in the near future for both of these, he already has an appointment in the next couple weeks at [facility]. He will need repeat creatinine and potassium testing. PENDING TEST RESULTS: None MEDICATION CHANGES: Increase Lasix from 20 mg daily to 40 mg daily FOLLOW-UP PLAN: He will be measuring twice daily blood pressures and daily weight home and record those for follow-up in outpatient clinics He has an appointment pending in the next couple of weeks with Dr. Hay; he will also follow up with Dr. Ayoub He will need repeat blood chemistry testing when he follows up in [facility]phrology Clinic Greater than 35 minutes bedside and care coordination time today
[2018-01-02] MEDS ORDERED: ALPRAZolam 0.25 MG TAB PO SCH (21:00)
[2018-01-03] MEDS ORDERED: PANTOPRAZOLE SODIUM 40 MG TAB PO SCH (09:00)
== END 2018-01-02 15:00 | disposition home or self-care (01) ==
LOC: EDUNIT# → F2N 01-02 02:00
PROVIDERS: ADMIT Family Medicine; ATTEND Family Medicine
DX: I10 Essential (primary) hypertension (principal); R42 Dizziness and giddiness; N18.4 Chronic kidney disease, stage 4 (severe); I50.22 Chronic systolic (congestive) heart failure; I38 Endocarditis, valve unspecified
CPT/HCPCS: 71045; 93005; G0378; J1644

== ENCOUNTER → 2018-03-02 | Outpatient (CLI) | payer OTHER, MEDICARE | LOC: BHCLAF 14:45 | PROVIDERS: ATTEND Internal Medicine Cardiovascular Disease | DX: I10 Essential (primary) hypertension (principal) | CPT/HCPCS: 93306-PO ==

== ENCOUNTER 2018-03-18 02:28 | Emergency (ER) | payer OTHER, MEDICARE ==
[2018-03-18] MEDS ORDERED: LORazepam 1 MG TAB PO ONE (02:55)
--- NOTE | 2018-03-18 02:57 | EDPHY ---
H & P Stated Complaint: restless, "feels off" Time Seen by Provider: 03/18/18 02:30 HPI/ROS: HPI The patient presents with insomnia which has been present for the last several months though was worse tonight and was associated with tinnitus. He is brought in by ambulance from his home. The patient says for the last several months he goes to bed at 10:00 p.m. But then cannot fall asleep until midnight. Tonight it was 2:00 a.m. And he still was not able to sleep. He says he is trying very hard to fall asleep but is not able. He often sleeps in in the morning to 9 or 10:00 a.m. So that he feels better. He has been taking Xanax before bed frequently and took it tonight. He thinks his insomnia was worsened by eating out at a restaurant for dinner. He does have a history of CAD and chronic kidney disease and is trying to maintain a strict diet but did have some dietary indiscretions tonight. REVIEW OF SYSTEMS Constitutional: No fever, no chills. Eyes: No discharge. ENT: No sore throat. Cardiovascular: No chest pain, no palpitations. Respiratory: No cough, no shortness of breath. Gastrointestinal: No abdominal pain, no vomiting. Genitourinary: No hematuria. Musculoskeletal: No back pain. Skin: No rashes. Neurological: No headache. PMHx: CAD status post [place], with stents in place, hypertension chronic kidney disease Soc Hx: Housed in [place] with his PHYSICAL General Appearance: Alert, no distress Eyes: Pupils equal and round no pallor or injection ENT, Mouth: Mucous membranes moist Respiratory: There are no retractions, lungs are clear to auscultation Cardiovascular: Regular rate and rhythm Gastrointestinal: Abdomen is soft and non-tender, no masses, bowel sounds normal Neurological: A&O, moves all extremities Skin: Warm and dry, no rashes Musculoskeletal: Neck is supple non tender Extremities: symmetrical, full range of motion Psychiatric: Patient is oriented X 3, there is no agitation Source: Patient, EMS Exam Limitations: No limitations - Personal History Current Tetanus Diphtheria and Acellular Pertussis (TDAP): No - Medical/Surgical History Hx Asthma: No Hx Chronic Respiratory Disease: No Hx Diabetes: No Hx Cardiac Disease: Yes Hx Renal Disease: Yes Hx Cirrhosis: No Hx Alcoholism: No Hx HIV/AIDS: No Hx Splenectomy or Spleen Trauma: No Other PMH: Hypertension, gout, prostate CA & Bladder tumor cardiac stents - Social History Smoking Status: Never smoked Constitutional: Initial Vital Signs O2 Sat (%) 95 03/18/18 02:30 O2 Delivery Mode Nasal Cannula O2 (L/minute) 2 Allergies/Adverse Reactions: No Known Allergies Allergy (Verified 03/18/18 02:33) Home Medications: Medication Instructions Recorded Allopurinol [Allopurinol 100 MG 100 mg PO DAILY 06/03/17 (*)] Aspirin [Aspirin 81mg (*)] 81 mg PO DAILY 08/12/17 Clopidogrel Bisulfate [Plavix (*)] 75 mg PO DAILY 08/12/17 Sodium Bicarbonate [Na Bicarb] 650 mg PO DAILY 01/01/18 ALPRAZolam [Xanax 0.25 MG (*)] 0.25 mg PO HS 01/02/18 Ascorbic Acid [Vitamin C 250 mg 250 mg PO DAILY 01/02/18 (*)] Atorvastatin Calcium [Lipitor 10 10 mg PO DAILY 01/02/18 mg (*)] Cholecalciferol Vit D3 [Vitamin D3 2,000 units PO DAILY 01/02/18 2000 units tab (OTC)] Furosemide [Lasix 20 MG (*)] 2 tab PO DAILY #0 01/02/18 Metoprolol Succinate Xr [Toprol Xl 25 mg PO DAILY 01/02/18 25 mg (*)] Omeprazole [Prilosec 20 mg] 40 mg PO DAILY 01/02/18 hydrALAZINE [Apresoline] 25 mg PO BID #60 tab 01/02/18 Medical Decision Making Differential Diagnosis: This is an 83-year-old male with CAD, hypertension, chronic kidney disease, gout who presents with difficulty sleeping tonight with tinnitus. He is brought in by ambulance. He says he has been experiencing insomnia for months, however tonight was more severe. He also does have a history of tinnitus which keeps him up. On exam, he has normal vital signs except for a mildly elevated blood pressure, exam is otherwise normal. I feel his symptoms are related to insomnia. I have considered electrolyte disturbance or infection. He declines any laboratory workup today. I discussed with him that Xanax should not be used in the long-term as a sleep aid. I asked that he follow up with his doctor to talk about alternative medications or possibly cognitive behavioral therapy for insomnia. He is in agreement with this plan. His will pick him up. I will give him a single dose of Ativan to help him sleep for the night but I have explained I will not give him a prescription of this. Departure - Departure Disposition: Home, Routine, Self-Care Clinical Impression: Insomnia Qualifiers: Insomnia type: unspecified Qualified Code(s): G47.00 - Insomnia, unspecified Condition: Good Instructions: Insomnia (ED) Additional Instructions: I recommend that you talk to your doctor about cognitive behavioral therapy for insomnia. This may be very helpful to you. Benzodiazepine such as Xanax are not supposed to be used in the long-term. A good book to read is called Say Fariha to Insomnia by Dr. Nathaniel Gordon. Referrals: Patient,NotPresent [Primary Care Provider] - As per Instructions
[2018-03-18 03:43] VITALS: BP 133/67
== END 2018-03-18 03:50 | disposition home or self-care (01) ==
LOC: EDUNIT#
DX: G47.00 Insomnia, unspecified (principal); I25.2 Old myocardial infarction; I25.10 Atherosclerotic heart disease of native coronary artery without angina pectoris; I12.9 Hypertensive chronic kidney disease with stage 1 through stage 4 chronic kidney disease, or unspecified chronic kidney disease; N18.9 Chronic kidney disease, unspecified; Z79.82 Long term (current) use of aspirin; Z85.46 Personal history of malignant neoplasm of prostate; Z95.5 Presence of coronary angioplasty implant and graft

== ENCOUNTER → 2018-03-23 | Outpatient (CLI) | payer OTHER, MEDICARE | LOC: BHCLAF 10:45 | PROVIDERS: ATTEND Internal Medicine Interventional Cardiology | DX: R09.89 Other specified symptoms and signs involving the circulatory and respiratory systems (principal) | CPT/HCPCS: 93880-PO ==

== ENCOUNTER 2019-01-09 07:30 | Emergency (ER) | payer OTHER, MEDICARE ==
--- NOTE | 2019-01-09 07:43 | EDPHY ---
H & P Time Seen by Provider: 01/09/19 07:33 HPI/ROS: Chief complaint. High blood pressure, ringing in ears HPI. 83-year-old male here by EMS with complaints of increased blood pressure this morning and ears were ringing. He got up and took his blood pressure was 200/100. He had no symptoms with that other than ringing in his ears. No dizziness or being off balance. No headache or change in vision. Denies chest discomfort, shortness of breath, abdominal pain. No focal weakness or altered sensation in arms or legs. Patient tells me has chronic ringing in his ears and he says "all the time". The ringing was louder this morning than usual and that was the difference. He does have a history of hypertension and use metoprolol for blood pressure control. He took his metoprolol this morning at about 6:15 a.m. ROS 10 systems were reviewed and negative with the exception of the elements mentioned in the history of present illness Past Medical/Surgical History: Past medical history is significant for coronary artery disease, mi with stents , chronic kidney disease, hypertension, gout, prostate cancer, bladder tumor Social History: , nonsmoker, no alcohol Smoking Status: Never smoked Physical Exam: General Appearance: Alert well-developed male mild distress. Vital signs show blood pressure 180/76 Eyes: Pupils equal and round no pallor or injection. ENT, tympanic membranes are normal. Pharynx without injection Respiratory: There are no retractions, lungs are clear to auscultation. Cardiovascular: Regular rate and rhythm. Gastrointestinal: Abdomen is soft and nontender, no masses, bowel sounds normal. Neurological: Awake and alert, sensory and motor exams grossly normal. Speech is normal. Cranial nerves intact. No pronator drift. [id number] and heel- to-ross are intact bilaterally Skin: Warm and dry, no rashes. Musculoskeletal: Neck is supple nontender. Extremities symmetrical, full range of motion. Psychiatric: Patient is oriented X 3, there is no agitation. Constitutional: Initial Vital Signs Temperature (C) 36.6 C 01/09/19 07:33 Heart Rate 67 01/09/19 07:33 Respiratory Rate 18 01/09/19 07:33 Blood Pressure 188/76 H 01/09/19 07:33 O2 Sat (%) 93 01/09/19 07:33 O2 Delivery Mode Room Air Allergies/Adverse Reactions: No Known Allergies Allergy (Verified 03/18/18 02:33) Home Medications: Medication Instructions Recorded Allopurinol [Allopurinol 100 MG 100 mg PO DAILY 06/03/17 (*)] Aspirin [Aspirin 81mg (*)] 81 mg PO DAILY 08/12/17 Clopidogrel Bisulfate [Plavix (*)] 75 mg PO DAILY 08/12/17 Sodium Bicarbonate [Na Bicarb] 650 mg PO DAILY 01/01/18 Ascorbic Acid [Vitamin C 250 mg 250 mg PO DAILY 01/02/18 (*)] Atorvastatin Calcium [Lipitor 10 10 mg PO DAILY 01/02/18 mg (*)] Cholecalciferol Vit D3 [Vitamin D3 2,000 units PO DAILY 01/02/18 2000 units tab (OTC)] Furosemide [Lasix 20 MG (*)] 2 tab PO DAILY #0 01/02/18 Metoprolol Succinate Xr [Toprol Xl 25 mg PO DAILY 01/02/18 25 mg (*)] Omeprazole [Prilosec 20 mg] 40 mg PO DAILY 01/02/18 Medical Decision Making - Diagnostics EKG Interpretation: EKG interpreted by me shows normal sinus rhythm. Borderline first-degree AV block. 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 No significant ST elevation or depression. No arrhythmia. The rate is 56 EKG not changed from prior EKG in December 2017 Procedures: IV normal saline, monitor ED Course/Re-evaluation: Re-evaluation 8:30 a.m.. Patient is stable. Current blood pressure 152/82 Patient's BUN and creatinine are elevated. However in review of patient's old and recent BUN and creatinine this appears to be stable Re-evaluation 8:35 a.m.. Patient is stable. He and I discussed laboratory an EKG findings. We discussed treatment plan including criteria for return and importance of follow-up and further evaluation. He expresses understanding and agreement Patient notes that his bringing has decreased back to normal levels. He remains neurologically intact Differential Diagnosis: I considered hypertensive crisis. There is no evidence for intracranial bleeding or CVA. He has chronic tinnitus - Data Points Laboratory Results: Laboratory Results 01/09/19 07:30 01/09/19 07:30 01/09/19 01/09/19 07:30 07:30 WBC 9.45 10^3/uL 10^3/uL (3.80-9.50) RBC 3.74 10^6/uL L 10^6/uL (4.40-6.38) Hgb 12.7 g/dL L g/dL (13.7-17.5) Hct 37.5 % L % (40.0-51.0) MCV 100.3 fL H fL (81.5-99.8) MCH 34.0 pg pg (27.9-34.1) MCHC 33.9 g/dL g/dL (32.4-36.7) RDW 13.9 % % (11.5-15.2) Plt Count 286 10^3/uL 10^3/uL (150-400) MPV 11.0 fL fL (8.7-11.7) Neut % (Auto) 56.4 % % (39.3-74.2) Lymph % (Auto) 25.2 % % (15.0-45.0) [place] % (Auto) 11.3 % % (4.5-13.0) Eos % (Auto) 6.3 % % (0.6-7.6) Baso % (Auto) 0.6 % % (0.3-1.7) Nucleat RBC Rel Count 0.0 % % (0.0-0.2) Absolute Neuts (auto) 5.32 10^3/uL 10^3/uL (1.70-6.50) Absolute Lymphs (auto) 2.38 10^3/uL 10^3/uL (1.00-3.00) Absolute Monos (auto) 1.07 10^3/uL H 10^3/uL (0.30-0.80) Absolute Eos (auto) 0.60 10^3/uL H 10^3/uL (0.03-0.40) Absolute Basos (auto) 0.06 10^3/uL 10^3/uL (0.02-0.10) Absolute Nucleated RBC 0.00 10^3/uL 10^3/uL (0-0.01) Immature Gran % 0.2 % % (0.0-1.1) Immature Gran # 0.02 10^3/uL 10^3/uL (0.00-0.10) Sodium 140 mEq/L mEq/L (135-145) Potassium 4.4 mEq/L mEq/L (3.5-5.2) Chloride 108 mEq/L mEq/L (97-110) Carbon Dioxide 21 mEq/l L mEq/l (22-31) Anion Gap 11 mEq/L mEq/L (6-14) BUN 59 mg/dL H mg/dL (7-23) Creatinine 3.0 mg/dL H mg/dL (0.7-1.3) Estimated GFR 20 Glucose 89 mg/dL mg/dL (70-100) Calcium 10.0 mg/dL mg/dL (8.5-10.4) Departure - Departure Disposition: Home, Routine, Self-Care Clinical Impression: Hypertension Qualifiers: Hypertension type: renovascular hypertension Qualified Code(s): I15.0 - Renovascular hypertension Tinnitus Qualifiers: Laterality: bilateral Qualified Code(s): H93.13 - Tinnitus, bilateral Condition: Good Instructions: Hypertension (ED) Additional Instructions: Continue to take your medication as prescribed 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
[2019-01-09 08:00] LABS: PLATELET COUNT 286 10^3/uL (150-400)
--- NOTE | 2019-01-09 08:36 | CPEKG ---
Test Reason : OPEN Blood Pressure : / mmHG Vent. Rate : 056 BPM Atrial Rate : 057 BPM P-R Int : 221 ms QRS Dur : 106 ms QT Int : 455 ms P-R-T Axes : 008 -42 038 degrees QTc Int : 440 ms Sinus rhythm Prolonged NV interval Left anterior fascicular block Confirmed by Aki Magaña ([id number]) on 01/09/2019 8:36:02 AM Referred By: Aki Magaña Confirmed By:Aki Magaña
[2019-01-09 08:52] VITALS: BP 145/69
== END 2019-01-09 08:59 | disposition home or self-care (01) ==
LOC: EDBD → EDUNIT#
DX: I15.0 Renovascular hypertension (principal); H93.13 Tinnitus, bilateral
CPT/HCPCS: 84484-ER

== ENCOUNTER 2019-05-19 10:38 | Emergency (ER) | payer OTHER, MEDICARE | END 2019-05-19 12:55 | disposition home or self-care (01) ==